=== PATIENT | female | born 1990 | race Caucasian/White ===

== ENCOUNTER 2021-02-14 15:50 | Emergency (ER) | payer OTHER, SELFPAY ==
--- NOTE | ~2021-02-14 | XR_ITS ---
EXAMINATION: XR chest 2V DATE: 02/14/2021 17:20 INDICATION: Shortness of breath TECHNIQUE: PA and lateral views of the chest are obtained. COMPARISON: 12/05/2017 FINDINGS: The lungs are free of acute opacities. There is no pleural effusion or pneumothorax. The ca rdiomediastinal silhouette is normal. The visualized bones and soft tissues are unremarkable. IMPRESSION: 1. No acute cardiopulmonary abnormality. Reviewed, dictated and finalized at location A.
[2021-02-14 16:29] VITALS: BP 135/85; PULSE 113; RESP 14; TEMP 37.1; O2SAT 100
--- NOTE | 2021-02-14 16:33 | ECG_ITS ---
Measurements Intervals [place] Rate: 102 P: 61 MT: 156 QRS: 66 QRSD: 85 T: 41 QT: 330 QTc: 431 Interpretive Statements SINUS TACHYCARDIA MINIMAL Q WAVES- ANTEROLAT/INF LEADS BORDERLINE ECG Electronically Signed On 02-14-2021 20:03:05 CDT by Jaime Cowan D.O.
[2021-02-14 18:28] LABS: Basophils Percent Auto 0.6 % (0.2-1.2); Eosinophils Absolute Auto 0.1 K/mm3 (0-0.3); Eosinophils Percent Auto 1.7 % (0-4.4); Hematocrit 41.2 % (37.0-47.0); Hemoglobin 13.5 g/dL (12.0-15.0); Lymphocytes Absolute Auto 1.51 K/mm3 (0.9-3.2); Lymphocytes Percent Auto 41.6 % (18.3-44.2); Mean Corpuscular HGB Conc 32.8 g/dl (32-36); Mean Corpuscular Hemoglobin 30.7 pg (26-34); Mean Corpuscular Volume 93.6 fl (80-100); Mean Platelet Volume 9.8 fl (7.4-10.4); Monocytes Absolute Auto 0.3 K/mm3 (0.1-0.6); Monocytes Percent Auto 8.5 % (2.6-8.5); Neutrophils Absolute Auto 1.7 K/mm3 (1.3-6.7); Neutrophils Percent Auto 47.6 % (45.5-73.1); Platelet Count Result 248 k/mm3 (150-375); Red Cell Distribution Width 12.2 % (11.5-14.5); White Blood Count 3.6 K/mm3 (4.5-10.0)
[2021-02-14 18:37] LABS: Anion Gap 12 mmol/L (8-16); Blood Urea Nitrogen 9 mg/dL (7-17); Calcium 9.4 mg/dL (8.4-10.2); Carbon Dioxide 25 mmol/L (22-30); Chloride 105 mmol/L (98-107); Estimated CRCL calculation 77 ml/min; Estimated Glomerular Filt Rate > 60; Glucose 94 mg/dL (65-110); Potassium 4.2 mmol/L (3.4-5.0); Sodium 142 mmol/L (137-145)
[2021-02-14 19:20] VITALS: BP 135/88; PULSE 90; RESP 17; O2SAT 100
[2021-02-14 19:21] VITALS: BP 135/88; PULSE 90; RESP 17; O2SAT 100
--- NOTE | 2021-02-14 20:46 | ED.GENADULT ---
HPI - General Adult General Chief complaint: Upper Respiratory Infection Stated complaint: sob after covid vaccine Time Seen by Provider: 02/14/21 19:28 Source: patient Mode of arrival: ambulatory Limitations: no limitations History of Present Illness HPI narrative: Patient presents with chief complaint of tightness or her esophagus and she has made that began yesterday. Patient states that she received her [employer] Covid vaccination on Thursday. She states that it feels as if she is having an allergic tightness. She reports taking daytime antihistamine this morning without relief of her symptoms. Patient states she has been able to eat, drink and swallow without difficulty. However the sensation is still present. Patient reports that she called her primary care and they instructed her to come to the ER to rule out a blood clot due to the [employer] vaccine. Patient denies any other symptoms or concerns. Related Data Allergies Allergy/AdvReac Type Severity Reaction Status Date / Time diphenhydramine AdvReac Intermediate Nervousness Verified 02/14/21 19:22 loratadine AdvReac Unknown NERVOUSNESS Verified 02/14/21 19:22 Grass Allergy Intermediate Dyspnea / Uncoded 02/14/21 19:22 SOB Review of Systems Review of Systems: CONSTITUTIONAL: Denies fever, chills, or sweats. EYES: Denies visual changes, redness, or discharge. ENT: Denies rhinorrhea, congestion, sore throat, or otalgia. CARDIOVASCULAR: Denies chest pain, palpitations, or edema. RESPIRATORY: Denies cough GASTROINTESTINAL: Denies abdominal pain, nausea, vomiting, or diarrhea. GENITOURINARY: Denies dysuria or hematuria. SKIN: Denies rash or itching. MUSCULOSKELETAL: Denies back pain, joint pain, or myalgia. NEUROLOGIC: Denies headache, numbness, dizziness, or weakness. PSYCHIATRIC: Denies anxiety or depression. Exam Narrative: GENERAL: Well-appearing, well-nourished, and in no acute distress. HEAD: Normocephalic, atraumatic. EYES: PERRLA and EOMI. ENT: Nares clear, no rhinorrhea or epistaxis. Mucous membranes moist. Oropharynx without tonsillar hypertrophy exudate or other lesions. Bilateral TMs pearly garcia nonbulging NECK: Supple. No adenopathy or masses. Range of motion intact. CHEST: Clear to auscultation. No respiratory distress. No wheezes rales or rhonchi. Patient speaking clear appropriate sentences without difficulty. Patient handling her own secretions. HEART: Regular rate and rhythm. No murmur heard. Normal peripheral pulses. EXTREMITIES: Normal range of motion. No edema. SKIN: Warm, dry, no rash. NEURO: No focal deficits. Alert and oriented x3. PSYCH: Normal mood and affect. Course Vital Signs Vital signs: Vital Signs Temperature 98.7 F 02/14/21 16:29 Pulse Rate 113 H 02/14/21 16:29 Respiratory Rate 14 02/14/21 16:29 Blood Pressure 135/85 02/14/21 16:29 Pulse Oximetry 100 02/14/21 16:29 Temperature 98.7 F 02/14/21 16:29 Pulse Rate 90 02/14/21 19:21 Respiratory Rate 17 02/14/21 19:21 Blood Pressure 135/88 02/14/21 19:21 Pulse Oximetry 100 02/14/21 19:21 Medical Decision Making MDM Narrative Medical decision making narrative: Patient's D-dimer is negative. She is not displaying any dyspnea, tachypnea or tachycardia. Patient appears hemodynamically stable. Steroids not given as we will decrease the attenuation of the vaccine. Patient is airway is patent and she is handling her own saliva appropriately has been able to eat and drink appropriately. Patient does not have any hives or erythema. Patient states she is not wanting any antihistamines or Ativan. Patient states that she is comfortable going home. Vital Signs Vital Signs: Vital Signs Temperature 98.7 F 02/14/21 16:29 Pulse Rate 113 H 02/14/21 16:29 Respiratory Rate 14 02/14/21 16:29 Blood Pressure 135/85 02/14/21 16:29 Pulse Oximetry 100 02/14/21 16:29 Temperature 98.7 F 02/14/21 16:29 Pulse Rate 90 02/14
--- NOTE | 2021-02-14 20:57 | PC.NURSE ---
Pt refused ativan due to past reactions to anti-anxiety medications. CRUZ Lyon aware
[2021-02-14 21:11] LABS: D Dimer 0.28 ug/mL (<0.48)
[2021-02-14 22:18] VITALS: BP 126/91; PULSE 92; RESP 14; O2SAT 100
== END 2021-02-14 22:19 | disposition home or self-care (01) ==
PROVIDERS: Emergency Medicine; Physician Assistant; Emergency Provider Emergency Medicine; PCP Student in an Organized Health Care Education/Training Program
DX: R09.89 Other specified symptoms and signs involving the circulatory and respiratory systems (principal); T50.B95A Adverse effect of other viral vaccines, initial encounter
CPT/HCPCS: 36415; 71046; 80048; 85025; 85380; 93005; 99283

== ENCOUNTER → 2021-03-26 08:16 | Outpatient (CLI) | payer OTHER, SELFPAY ==
--- NOTE | ~2021-03-26 | XR_ITS ---
EXAMINATION: XR hand LT 2V DATE: 03/26/2021 09:11 INDICATION: Polyarthralgia. TECHNIQUE: 2 views of left hand were obtained. COMPARISON: None. FINDINGS: Clinodactyly is noted. No fracture. There is a benign bone island in capitate. Joint spaces are normal. IMPRESSION: 1. No arthritis. Reviewed, dictated and finalized at location A. IMPRESSION: 1. No arthritis.
--- NOTE | ~2021-03-26 | XR_ITS ---
EXAMINATION: XR hand RT 2V DATE: 03/26/2021 09:10 INDICATION: Polyarthralgia. TECHNIQUE: 2 views of right hand were obtained. COMPARISON: None. FINDINGS: Clinodactyly is noted. No fracture. Joint spaces are normal. IMPRESSION: 1. No arthritis. Reviewed, dictated and finalized at location A. IMPRESSION: 1. No arthritis.
--- NOTE | ~2021-03-26 | XR_ITS ---
EXAMINATION: XR lumbar spine 2-3V, XR sacroiliac joints min 3V EXAM DATE: 03/26/2021 09:10 INDICATION: Polyarthralgia. TECHNIQUE: Lumber spine frontal, lateral, lateral L5-S1 projections for interpretation. Sacroiliac j oints frontal and bilateral oblique projections. There are no prior studies for comparison. FINDINGS: There is mild thoracolumbar dextrocurvature, could be scoliosis or positional. Vertebral body and disc heights are well-maintained. The facet joints are unremarkable. No endplate e rosive change. Sacrum, sacroiliac joints, sacral arcuate lines are intact. Sacroiliac joints are symm etric. IMPRESSION: Minimal thoracolumbar dextrocurvature. Unremarkable sacrum. Reviewed, dictated and finalized at location B. IMPRESSION: Minimal thoracolumbar dextrocurvature. Unremarkable sacrum.
== END ==
PROVIDERS: Visit Provider Physician Assistant
DX: M25.50 Pain in unspecified joint (principal)
CPT/HCPCS: 72100; 72202; 73120

== ENCOUNTER 2021-09-05 10:24 | Emergency (ER) | payer OTHER, SELFPAY ==
[2021-09-05 10:34] VITALS: BP 139/100; PULSE 101; RESP 18; O2SAT 100
--- NOTE | 2021-09-05 10:38 | PC.NURSE ---
EDP at bedside to assess pt.
--- NOTE | 2021-09-05 10:47 | ED.GENADULT ---
HPI - General Adult General Chief complaint: Headache <Kerry Irving PA-C - Last Filed: 09/05/21 14:06> Stated complaint: , vomiting <Kerry Irving PA-C - Last Filed: 09/05/21 14:06> Time Seen by Provider: 09/05/21 10:32 <Kerry Irving PA-C - Last Filed: 09/05/21 14:06> History of Present Illness HPI narrative: Patient is a G5, P1 female with a history of hyperemesis gravidarum who is currently 5 weeks who presents for nausea, vomiting, and headache today. Patient states she has had approximately 5 episodes of vomiting nonbloody, nonbilious emesis per hour over the last 6 hours, she has been unable to tolerate any p.o. including her migraine medications. Her headache is diffuse and typical of her tension headaches, for which she takes Fioricet prescribed by her OUTBOARD MOTOR MECHANIC. States during her previous , she was on an antiemetic and prednisone to control her hyperemesis. She denies any abdominal pain, vaginal bleeding, sudden gush of fluids, fevers, new foods, sick contacts, leg swelling. She is a new patient of Dr. Wallace and has follow-up with him tomorrow. Is scheduled to start botox injections with Dr. Pandya, neurologist at [facility], for her migraine headaches. <Kerry Irving PA-C - Last Filed: 09/05/21 14:06> Related Data Allergies/adverse reactions: Allergies Allergy/AdvReac Type Severity Reaction Status Date / Time diphenhydramine AdvReac Intermediate Nervousness Verified 09/05/21 12:33 loratadine AdvReac Unknown NERVOUSNESS Verified 09/05/21 12:33 Grass Allergy Intermediate Dyspnea / Uncoded 02/14/21 19:22 SOB <Kerry Irving PA-C - Last Filed: 09/05/21 14:06> Review of Systems Review of Systems: Gen.: Denies fevers or chills Eyes: Denies eye pain or visual change ENT: Denies congestion Respiratory: Denies shortness of breath or cough CV: Denies chest pain or palpitations GI: Reports nausea, vomiting. denies abdominal pain or diarrhea : Denies vaginal bleeding. Denies burning, urgency, frequency or hematuria Musculoskeletal: Denies back pain or muscle pain Neuro: Reports headache. Denies numbness, tingling, weakness or focal weakness Skin: Denies rash Except as documented, all other systems reviewed and negative <Kerry Irving PA-C - Last Filed: 09/05/21 14:06> Exam Narrative: APPEARANCE: Well appearing, no pain in distress, well-nourished. Head normocephalic and atraumatic. EYES: PERRLA/EOMI, conjunctivae clear NOSE: No nasal drainage EARS: External ear normal in appearance THROAT: Oropharynx is clear. Mucous membranes are moist. NECK: Supple. No adenopathy, no masses. RESPIRATORY: Airway patent, respirations nonlabored. Clear to auscultation bilaterally, no rales, rhonchi, wheezing. CARDIOVASCULAR: Regular rate and rhythm without murmurs, rubs, or gallops. ABDOMINAL: Normoactive bowel sounds. Soft, nontender, nondistended. No rebound tenderness or guarding. MUSCULOSKELETAL: Extremities are warm and well-perfused. Moves all extremities well. No edema. NEURO: Normal speech. No focal neurologic deficits. SKIN:: Skin is warm and dry. No rashes. PSYCHIATRIC: Normal affect/mood. <Kerry Irving PA-C - Last Filed: 09/05/21 14:06> Course BEADING INSTALLER/PA Physician Supervision I did not see this patient but the care plan was discussed with me. I agree with the documentation as above <Tod Marcus MD - Last Filed: 09/05/21 17:28> Vital Signs Vital signs: Vital Signs Pulse Rate 101 H 09/05/21 10:34 Respiratory Rate 18 09/05/21 10:34 Blood Pressure 139/100 H 09/05/21 10:34 Pulse Oximetry 100 09/05/21 10:34 Pulse Rate 108 H 09/05/21 13:56 Respiratory Rate 18 09/05/21 13:56 Blood Pressure 122/73 09/05/21 13:56 Pulse Oximetry 100 09/05/21 13:56 <Kerry Irving PA-C - Last Filed: 09/05/21 14:06> Vital Signs Pulse Rate 101 H 09/05/21 10:34 Respiratory Rat
[2021-09-05 11:06] LABS: Basophils Percent Auto 0.3 % (0.2-1.2); Eosinophils Percent Auto 0.1 % (0-4.4); Hematocrit 42.6 % (37.0-47.0); Hemoglobin 13.9 g/dL (12.0-15.0); Immature Granulocyte Absolute 0.02 K/mm3 (0.00-0.031); Immature Granulocyte Percent A 0.2 % (0-0.5); Lymphocytes Absolute Auto 0.99 K/mm3 (0.9-3.2); Lymphocytes Percent Auto 11.5 % (18.3-44.2); Mean Corpuscular HGB Conc 32.6 g/dl (32-36); Mean Corpuscular Hemoglobin 30.4 pg (26-34); Mean Corpuscular Volume 93.2 fl (80-100); Mean Platelet Volume 9.2 fl (7.4-10.4); Monocytes Absolute Auto 0.4 K/mm3 (0.1-0.6); Monocytes Percent Auto 4.6 % (2.6-8.5); Neutrophils Absolute Auto 7.2 K/mm3 (1.3-6.7); Neutrophils Percent Auto 83.3 % (45.5-73.1); Platelet Count Result 304 k/mm3 (150-375); Red Blood Count 4.57 M/mm3 (4.2-5.4); Red Cell Distribution Width 12.7 % (11.5-14.5); White Blood Count 8.6 K/mm3 (4.5-10.0)
[2021-09-05 11:15] LABS: Alanine Aminotransferase 20 U/L (4-35); Albumin Level 4.7 g/dL (3.5-5.1); Alkaline Phosphatase 57 U/L (38-126); Anion Gap 10 mmol/L (8-16); Aspartate Amino Transferase 32 U/L (14-36); Bilirubin,Total 0.9 mg/dL (0.2-1.3); Blood Urea Nitrogen 11 mg/dL (7-17); Calcium 8.9 mg/dL (8.4-10.2); Carbon Dioxide 20 mmol/L (22-30); Chloride 107 mmol/L (98-107); Estimated CRCL calculation 89 ml/min; Estimated Glomerular Filt Rate > 60; Glucose 98 mg/dL (65-110); Potassium 3.7 mmol/L (3.4-5.0); Sodium 137 mmol/L (137-145)
[2021-09-05] MEDS: SODIUM CHLORIDE 0.9% IV 1,000 ML 999 ML IV CONT (11:23)
[2021-09-05] MEDS: ONDANSETRON INJ 4 MG/2 ML VIAL IV PUSH (11:35)
[2021-09-05] MEDS: ACETAMINOPHEN 500 MG TABLET 1000 MG PO (12:27)
[2021-09-05] MEDS: PROCHLORPERAZINE EDISYLATE 10 MG/2 ML VIAL IV PUSH (13:28)
[2021-09-05 13:45] LABS: Add Urine Microscopic? YES; Appearance Urine Clear (Clear); Bilirubin Urine Negative (Negative); Blood Urine 1+ (Negative); Color Urine Yellow (Yellow); Glucose Urine UA Negative (Negative); Ketones Urine 2+ mg/dL (Negative); Leukocyte Esterase Ur 1+ LEU/UL (Negative); Mucus Urine Rare /lpf; Nitrate Urine Negative (Negative); Protein Urine Negative (Negative); RBC Urine 0-2 /hpf (0-2); Squamous Epithelial Cell Urine Occasional /hpf (Few); Urobilinogen Urine Negative mg/dL (<2.0); WBC Urine 0-3 /hpf
[2021-09-05 13:56] VITALS: BP 122/73; PULSE 108; RESP 18; O2SAT 100
== END 2021-09-05 14:06 | disposition home or self-care (01) ==
PROVIDERS: Physician Assistant; Emergency Provider Emergency Medicine; PCP Obstetrics & Gynecology
DX: O21.9 Vomiting of pregnancy, unspecified (principal); Z3A.01 Less than 8 weeks gestation of pregnancy
CPT/HCPCS: 36415; 80053; 81001; 81025; 85025; 96361; 96374; 96375; 99284; A9270; J0780; J2405; J7030

== ENCOUNTER 2021-09-11 10:55 | Emergency (ER) | payer OTHER, SELFPAY ==
[2021-09-11 10:58] VITALS: BP 129/78; PULSE 102; RESP 17; TEMP 36.6; O2SAT 99
--- NOTE | 2021-09-11 10:58 | ED.NAVMDI ---
HPI - Nausea/Vomiting/Diarrhea General Chief complaint: Nausea/Vomiting/Diarrhea Stated complaint: 6 weeks, N/V Time Seen by Provider: 09/11/21 10:57 History of Present Illness HPI Narrative: 30-year-old female presents the emergency room for evaluation of antepartum nausea and vomiting. Patient states that she has hyperemesis gravidarum, and was sent here by her CARTON MAKING MACHINIST's office for fluid replacement patient denies abdominal pain, fever, vaginal bleeding. Related Data Allergies Allergy/AdvReac Type Severity Reaction Status Date / Time diphenhydramine AdvReac Intermediate Nervousness Verified 09/11/21 11:00 loratadine AdvReac Unknown NERVOUSNESS Verified 09/11/21 11:00 Grass Allergy Intermediate Dyspnea / Uncoded 02/14/21 19:22 SOB Review of Systems Review of Systems: CONSTITUTIONAL: Denies fever, chills, or sweats. EYES: Denies visual changes, redness, or discharge. ENT: Denies rhinorrhea, congestion, sore throat, or otalgia. CARDIOVASCULAR: Denies chest pain, palpitations, or edema. RESPIRATORY: Denies cough or dyspnea. GASTROINTESTINAL: Reports nausea and vomiting GENITOURINARY: Denies dysuria or hematuria. SKIN: Denies rash or itching. MUSCULOSKELETAL: Denies back pain, joint pain, or myalgia. NEUROLOGIC: Denies headache, numbness, dizziness, or weakness. PSYCHIATRIC: Denies anxiety or depression. Exam Narrative: GENERAL: Well-appearing, well-nourished, and in no acute distress. HEAD: Normocephalic, atraumatic. EYES: PERRLA and EOMI. CHEST: Clear to auscultation. No respiratory distress. No wheezes rales or rhonchi HEART: Regular rate and rhythm. No murmur heard. Normal peripheral pulses. ABDOMEN: Soft, nontender, nondistended, normal active bowel sounds. EXTREMITIES: Normal range of motion. No edema. SKIN: Warm, dry, no rash. NEURO: No focal deficits. Alert and oriented x3. PSYCH: Normal mood and affect. Course Vital Signs Vital signs: Vital Signs Temperature 36.6 C 09/11/21 10:58 Pulse Rate 102 H 09/11/21 10:58 Respiratory Rate 17 09/11/21 10:58 Blood Pressure 129/78 09/11/21 10:58 Pulse Oximetry 99 09/11/21 10:58 Temperature 36.6 C 09/11/21 10:58 Pulse Rate 102 H 09/11/21 10:58 Respiratory Rate 17 09/11/21 10:58 Blood Pressure 129/78 09/11/21 10:58 Pulse Oximetry 99 09/11/21 10:58 MDM - Nausea/Vomiting/Diarrhea MDM Narrative Medical decision making narrative: 30-year-old female presents emergency room with complaints of nausea vomiting over the last couple of days. Patient is 6 weeks and has been experiencing hyperemesis gravidarum. Patient states that she has multiple antiemetics at home which have not been helping her. CBC and CMP were unremarkable. Patient responded well to a liter of fluids. Differential Diagnosis Differential diagnosis: Likely dehydration Lab Data Attestation: I reviewed the patient's lab results. Result diagrams: 09/11/21 11:25 09/11/21 11:26 Labs: Lab Results 09/11/21 09/11/21 Range/Units 11:25 11:26 WBC 8.2 (4.5-10.0) K/mm3 RBC 4.38 (4.2-5.4) M/mm3 Hgb 13.3 (12.0-15.0) g/dL Hct 40.5 (37.0-47.0) % MCV 92.5 (80-100) fl MCH 30.4 (26-34) pg MCHC 32.8 (32-36) g/dl RDW 12.4 (11.5-14.5) % Plt Count 273 (150-375) k/mm3 MPV 9.3 (7.4-10.4) fl Immature Gran % (Auto) 0.2 (0-0.5) % Neut % (Auto) 78.8 H (45.5-73.1) % Lymph % (Auto) 14.3 L (18.3-44.2) % [place] % (Auto) 6.0 (2.6-8.5) % Eos % (Auto) 0.1 (0-4.4) % Baso % (Auto) 0.6 (0.2-1.2) % Lymph # (Auto) 1.18 (0.9-3.2) K/mm3 [place] # (Auto) 0.5 (0.1-0.6) K/mm3 Eos # (Auto) 0.0 (0-0.3) K/mm3 Baso # (Auto) 0.1 (0.0-0.1) K/mm3 Abs Immat Gran (auto) 0.02 (0.00-0.031) K/mm3 Absolute Neuts (auto) 6.5 (1.3-6.7) K/mm3 Absolute Nucleated RBC 0.0 (0.0-0.012) K/mm3 Nucleated RBC % 0.0 (0.0-0.2) % Sodium 133 L (137-145) mmol/L Potassium 3.6 (3.4-5.0) mmol/L
[2021-09-11] MEDS: SODIUM CHLORIDE 0.9% IV 1,000 ML 999 ML IV CONT (11:26)
[2021-09-11 11:39] LABS: Basophils Absolute Auto 0.1 K/mm3 (0.0-0.1); Basophils Percent Auto 0.6 % (0.2-1.2); Eosinophils Percent Auto 0.1 % (0-4.4); Hematocrit 40.5 % (37.0-47.0); Hemoglobin 13.3 g/dL (12.0-15.0); Immature Granulocyte Absolute 0.02 K/mm3 (0.00-0.031); Immature Granulocyte Percent A 0.2 % (0-0.5); Lymphocytes Absolute Auto 1.18 K/mm3 (0.9-3.2); Lymphocytes Percent Auto 14.3 % (18.3-44.2); Mean Corpuscular HGB Conc 32.8 g/dl (32-36); Mean Corpuscular Hemoglobin 30.4 pg (26-34); Mean Corpuscular Volume 92.5 fl (80-100); Mean Platelet Volume 9.3 fl (7.4-10.4); Monocytes Absolute Auto 0.5 K/mm3 (0.1-0.6); Neutrophils Absolute Auto 6.5 K/mm3 (1.3-6.7); Neutrophils Percent Auto 78.8 % (45.5-73.1); Platelet Count Result 273 k/mm3 (150-375); Red Blood Count 4.38 M/mm3 (4.2-5.4); Red Cell Distribution Width 12.4 % (11.5-14.5); White Blood Count 8.2 K/mm3 (4.5-10.0)
[2021-09-11 11:49] LABS: Alanine Aminotransferase 19 U/L (4-35); Albumin Level 4.7 g/dL (3.5-5.1); Alkaline Phosphatase 58 U/L (38-126); Anion Gap 10 mmol/L (8-16); Aspartate Amino Transferase 24 U/L (14-36); Bilirubin,Total 1.1 mg/dL (0.2-1.3); Blood Urea Nitrogen 9 mg/dL (7-17); Carbon Dioxide 19 mmol/L (22-30); Chloride 104 mmol/L (98-107); Estimated CRCL calculation 97 ml/min; Estimated Glomerular Filt Rate > 60; Glucose 99 mg/dL (65-110); Potassium 3.6 mmol/L (3.4-5.0); Sodium 133 mmol/L (137-145)
== END 2021-09-11 13:04 | disposition home or self-care (01) ==
PROVIDERS: Emergency Provider Nurse Practitioner Family; PCP Obstetrics & Gynecology
DX: O21.0 Mild hyperemesis gravidarum (principal); Z3A.01 Less than 8 weeks gestation of pregnancy
CPT/HCPCS: 36415; 80053; 85025; 96360; 96361; 99283; J7030

== ENCOUNTER 2021-09-13 13:43 | Observation (INO) | payer OTHER, SELFPAY ==
[2021-09-13] VITALS (7 sets, daily range): BP systolic 105–129; BP diastolic 57–84; PULSE 61–104; BMI 26.4
[2021-09-13 14:33] LABS: Hematocrit 37.6 % (37.0-47.0); Hemoglobin 12.7 g/dL (12.0-15.0); Mean Corpuscular HGB Conc 33.8 g/dl (32-36); Mean Corpuscular Hemoglobin 31.1 pg (26-34); Mean Corpuscular Volume 92.2 fl (80-100); Mean Platelet Volume 9.3 fl (7.4-10.4); Platelet Count Result 228 k/mm3 (150-375); Red Blood Count 4.08 M/mm3 (4.2-5.4); Red Cell Distribution Width 12.4 % (11.5-14.5); White Blood Count 5.3 K/mm3 (4.5-10.0)
[2021-09-13 14:44] LABS: Alanine Aminotransferase 23 U/L (4-35); Albumin Level 4.4 g/dL (3.5-5.1); Alkaline Phosphatase 50 U/L (38-126); Anion Gap 9 mmol/L (8-16); Aspartate Amino Transferase 36 U/L (14-36); Bilirubin,Total 0.6 mg/dL (0.2-1.3); Blood Urea Nitrogen 10 mg/dL (7-17); Calcium 8.6 mg/dL (8.4-10.2); Carbon Dioxide 22 mmol/L (22-30); Chloride 103 mmol/L (98-107); Estimated Glomerular Filt Rate > 60; Glucose 121 mg/dL (65-110); Potassium 3.4 mmol/L (3.4-5.0); Sodium 134 mmol/L (137-145)
[2021-09-13] MEDS: DEXTROSE 5%/LACTATED RINGERS 1,000 ML 999 ML IV CONT (14:46)
--- NOTE | 2021-09-13 15:06 | PC.NURSE ---
1505--Sony Yu on unit, report given re: pt. stating she had passed out earlier today X15 sec., lab results reviewed. Orders to continue with POC and make sure pt. gets D5LR X1 liter bolus and LR X1 liter bolus.
--- NOTE | 2021-09-13 15:09 | OBADM ---
This patient, Roxi Shepard, admitted to the OB room OB Post 112 for observation. Patient/family oriented to hospital policies and general routines including ID bracelet, bed and alarms, visiting hours, pain management, procedures, bathroom and other care routines, personal items, smoking policy, room service/diet, and visiting hours. Patient/Family are encouraged to report perceived risks to care and to ask questions if they do not understand what they are told or what they should do. Pt. states she has hyperemesis gravidarum and that she had passed out X15 sec. at approx, 1315 today. She states it was witnessed per her who caught her and eased her onto the couch. Pt. states she has not been able to keep anything down and has only had 1 sip of lemon slush today.
[2021-09-13] MEDS: FAMOTIDINE 20 MG/2 ML VIAL IV PUSH (15:23)
[2021-09-13] MEDS: LACTATED RINGERS 1,000 ML 999 ML IV CONT (15:44)
[2021-09-13] MEDS: DEXTROSE 5%/LACTATED RINGERS 1,000 ML 200 ML IV CONT (16:54)
--- NOTE | 2021-09-13 17:12 | PC.NURSE ---
1634--Pt. vomited 100cc pink liquid emesis.
[2021-09-13 17:15] LABS: Add Urine Microscopic? YES; Appearance Urine Clear (Clear); Bilirubin Urine Negative (Negative); Blood Urine Negative (Negative); Color Urine Yellow (Yellow); Glucose Urine UA 3+ mg/dL (Negative); Ketones Urine Negative (Negative); Leukocyte Esterase Ur Negative LEU/UL (NEGATIVE); Nitrate Urine Negative (Negative); Protein Urine Negative (Negative); Urobilinogen Urine 0.2 mg/dL (<2.0)
[2021-09-13 17:18] LABS: Mucus Urine Rare /lpf; RBC Urine 0-2 /hpf (0-2); Squamous Epithelial Cell Urine Rare /hpf (Few); WBC Urine 0-3 /hpf (0-3)
--- NOTE | 2021-09-13 18:14 | PC.NURSE ---
1813--Report urine results to Sony Yu CNM. She states that pt. may stay and continue with IVF's if she feels the need, but may be DC'd home whenever she feels better. Report to Svetlana Solano RN to assume care of pt. at this time.
--- NOTE | 2021-10-20 18:34 | P.PNOB_ITS ---
OB - Triage/Final Diagnosis Visit Information Date of evaluation: 09/13/21 Reason for evaluation: other (hyperemesis) Comments/Additional reasons for admission: I have assessed the risk for this patient, Roxi Shepard, and determined that she would benefit from observation care. Evaluation Laboratory results: Laboratory Tests 09/13/21 09/13/21 09/13/21 14:27 14:27 17:02 WBC 5.3 RBC 4.08 L Hgb 12.7 Hct 37.6 MCV 92.2 MCH 31.1 MCHC 33.8 RDW 12.4 Plt Count 228 MPV 9.3 Sodium 134 L Potassium 3.4 Chloride 103 Carbon Dioxide 22 Anion Gap 9 BUN 10 Creatinine 0.60 L Estim Creat Clear Calc Not Reportable Estimated GFR > 60 Glucose 121 H Calcium 8.6 Total Bilirubin 0.6 AST 36 ALT 23 Alkaline Phosphatase 50 Total Protein 8.0 Albumin 4.4 Urine Color Yellow Urine Appearance Clear Urine pH 7.0 Ur Specific [place] 1.010 Urine Protein Negative Urine Glucose (UA) 3+ H Urine Ketones Negative Ur Blood (Man) Negative Urine Nitrate Negative Urine Bilirubin Negative Urine Urobilinogen 0.2 Ur Leukocyte Esterase Negative Urine RBC 0-2 Urine WBC 0-3 Ur Squamous Epith Cells Rare Urine Mucus Rare
== END 2021-09-13 21:12 | disposition home or self-care (01) ==
PROVIDERS: Advanced Practice Midwife; Admitting Provider Obstetrics & Gynecology; Visit Provider Obstetrics & Gynecology
DX: O21.0 Mild hyperemesis gravidarum (principal); Z3A.00 Weeks of gestation of pregnancy not specified
CPT/HCPCS: 36415; 80053; 81001; 85027; 96374; G0378; G0379; J7120; J7121

== ENCOUNTER 2021-09-16 09:22 | Observation (INO) | payer OTHER, SELFPAY ==
--- NOTE | 2021-09-16 09:35 | PC.NURSE ---
Dr Wallace notified of hyperemesis and patient wanting IV fluid. Order received.
[2021-09-16] MEDS: DEXTROSE 5%/LACTATED RINGERS 1,000 ML 999 ML IV CONT (09:56)
[2021-09-16 10:00] VITALS: BP 110/70; PULSE 88; BMI 26.6
--- NOTE | 2021-09-16 10:00 | OBADM ---
This patient, Roxi Shepard, admitted to the OB room OB Post 116 for observation. Patient/family oriented to hospital policies and general routines including ID bracelet, bed and alarms, visiting hours, pain management, procedures, bathroom and other care routines, personal items, smoking policy, room service/diet, and visiting hours. Patient/Family are encouraged to report perceived risks to care and to ask questions if they do not understand what they are told or what they should do.
[2021-09-16] MEDS: FAMOTIDINE 20 MG/2 ML VIAL IV PUSH (10:56)
[2021-09-16] MEDS: DEXTROSE 5%/LACTATED RINGERS 1,000 ML 200 ML IV CONT (10:56)
--- NOTE | 2021-09-16 15:12 | PC.NURSE ---
Patient states that she is feeling better and more hydrated. Wishing to go home. Patient spoke to the MD office and they are trying to arrange home health for a PICC line.
--- NOTE | 2021-10-07 15:37 | PM.OBTRLD ---
OB - Triage/Final Diagnosis Visit Information Comments/Additional reasons for admission: I have assessed the risk for this patient, Roxi Shepard, and determined that she would benefit from observation care. Final Diagnosis (1) Nausea/vomiting in : Code(s): O21.9 - Vomiting of , unspecified Status: Acute
== END 2021-09-16 15:15 | disposition home or self-care (01) ==
PROVIDERS: Admitting Provider Obstetrics & Gynecology; Visit Provider Obstetrics & Gynecology
DX: O21.0 Mild hyperemesis gravidarum (principal); Z3A.01 Less than 8 weeks gestation of pregnancy
CPT/HCPCS: 96361; 96374; G0378; G0379; J7121

== ENCOUNTER 2021-09-18 08:25 | Outpatient (RCR) | payer OTHER, SELFPAY ==
[2021-09-18 08:35] VITALS: BP 129/76; PULSE 88; RESP 14; TEMP 37.4; O2SAT 100; BMI 26.7
--- NOTE | 2021-09-18 10:14 | PC.NURSE ---
0830 Patient here for dual picc line insertion. Patient A & O x 3. Patient ambulatory with steady gait. All question answered regarding picc line insertion and procedures. Patient agreeable to picc line insert and consent signed by patient.
== END 2021-12-17 23:59 | disposition home or self-care (01) ==
LOC: ANHVASCINF 08:25
PROVIDERS: PCP Obstetrics & Gynecology; Visit Provider Obstetrics & Gynecology
DX: Z45.2 Encounter for adjustment and management of vascular access device (principal); O21.0 Mild hyperemesis gravidarum; Z3A.00 Weeks of gestation of pregnancy not specified
CPT/HCPCS: 36569; C1751

== ENCOUNTER 2021-09-27 12:03 | Outpatient (CLI) | payer OTHER, SELFPAY ==
--- NOTE | 2021-09-27 | ECG_ITS ---
Measurements Intervals [place] Rate: 60 P: 49 AR: 162 QRS: 70 QRSD: 90 T: 52 QT: 395 QTc: 397 Interpretive Statements SINUS RHYTHM NORMAL ECG COMPARED TO ECG 02/14/2021 16:44:29 HEART RATE DECREASED, NO OTHER DIFFERENCE Electronically Signed On 09-27-2021 12:54:14 CDT by Julio C Edwards M.D.
== END 2021-09-27 12:04 | disposition home or self-care (01) ==
LOC: ANHCARD 12:06
PROVIDERS: PCP Student in an Organized Health Care Education/Training Program; Visit Provider Obstetrics & Gynecology
DX: O21.1 Hyperemesis gravidarum with metabolic disturbance (principal); Z3A.00 Weeks of gestation of pregnancy not specified
CPT/HCPCS: 93005

== ENCOUNTER 2021-10-26 11:30 | Emergency (ER) | payer SELFPAY ==
[2021-10-26 11:31] VITALS: BP 138/95; PULSE 122; RESP 18; TEMP 36.4; O2SAT 100
--- NOTE | 2021-10-26 12:03 | ED.GENADULT ---
HPI - General Adult General Chief complaint: Vaginal Bleeding Stated complaint: 13 weeks with spotting Time Seen by Provider: 10/26/21 11:52 History of Present Illness HPI narrative: 29-year-old female presenting to the emergency department for evaluation of vaginal bleeding. Patient is approximately 13 weeks and does have follow-up with Dr. Wallace. Patient has had prior issues with hyperemesis gravidarum and does have a PICC line. Patient is currently getting IV fluids. Patient states last night she began to notice some pink and brown vaginal spotting. Patient states this is primarily after she wipes. Patient does have a history of cervical incompetence and is scheduled to have a cerclage placed. Patient does report some lower abdominal cramping, the patient denies any significant abdominal pain. Patient blood type is O+. Patient has had multiple ultrasounds with this confirming an IUP. Patient states her last ultrasound was which showed she had a closed cervix of 2 cm. Related Data Home Medications Medication Instructions Recorded Confirmed granisetron HCl 1 mg tablet 1 mg PO BID 09/13/21 09/13/21 pantoprazole 20 mg tablet,delayed 20 mg PO BID 09/13/21 09/13/21 release Allergies Allergy/AdvReac Type Severity Reaction Status Date / Time diphenhydramine AdvReac Intermediate Nervousness Verified 09/11/21 11:00 loratadine AdvReac Unknown NERVOUSNESS Verified 09/11/21 11:00 Grass Allergy Intermediate Dyspnea / Uncoded 02/14/21 19:22 SOB Review of Systems Review of Systems: CONSTITUTIONAL: Denies fever, chills, or sweats. EYES: Denies visual changes, redness, or discharge. ENT: Denies rhinorrhea, congestion, sore throat, or otalgia. CARDIOVASCULAR: Denies chest pain, palpitations, or edema. RESPIRATORY: Denies cough or dyspnea. GASTROINTESTINAL: Mild abdominal cramping and vaginal spotting GENITOURINARY: Denies dysuria or hematuria. SKIN: Denies rash or itching. MUSCULOSKELETAL: Denies back pain, joint pain, or myalgia. NEUROLOGIC: Denies headache, numbness, or weakness. Exam Narrative: APPEARANCE: Well appearing, no pain, no distress, well-nourished. HEAD: normocephalic, atraumatic. EYES: PERRLA/EOMI, conjunctivae clear. NECK: Supple. No adenopathy, no masses. RESPIRATORY: Airway patent, respirations nonlabored. Clear to auscultation bilaterally, no rales, rhonchi, wheezing. CARDIOVASCULAR: Regular rate and rhythm without murmurs rubs or gallops. ABDOMINAL: Soft, nontender, nondistended, normal bowel sounds MUSCULOSKELETAL: Moves all extremities. Strength/ROM intact, No edema, No calf tenderness. NEURO: Alert. Cranial nerves II through XII intact. Grossly intact SKIN: Warm, dry. Normal Color Course Consultations Consultation #1: Consulted Dr. Wallace, the patient's AGRICULTURAL ADVISER. Vital Signs Vital signs: Vital Signs Temperature 97.5 F L 10/26/21 11:31 Pulse Rate 122 H 10/26/21 11:31 Respiratory Rate 18 10/26/21 11:31 Blood Pressure 138/95 H 10/26/21 11:31 Pulse Oximetry 100 10/26/21 11:31 Oxygen Delivery Room Air 10/26/21 11:31 Temperature 97.5 F L 10/26/21 11:31 Pulse Rate 122 H 10/26/21 11:31 Respiratory Rate 18 10/26/21 11:31 Blood Pressure 138/95 H 10/26/21 11:31 Pulse Oximetry 100 10/26/21 11:31 Oxygen Delivery Room Air 10/26/21 11:31 Medical Decision Making Vital Signs Vital Signs: Vital Signs Temperature 97.5 F L 10/26/21 11:31 Pulse Rate 122 H 10/26/21 11:31 Respiratory Rate 18 10/26/21 11:31 Blood Pressure 138/95 H 10/26/21 11:31 Pulse Oximetry 100 10/26/21 11:31 Oxygen Delivery Room Air 10/26/21 11:31 Temperature 97.5 F L 10/26/21 11:31 Pulse Rate 122 H 10/26/21 11:31 Respiratory Rate 18 10/26/21 11:31 Blood Pressure 138/95 H 10/26/21 11:31 Pulse Oximetry 100 10/26/21 11:31 Oxygen Delivery Room Air 10/26/21 11:31 Discharge Plan Discharge Prescriptions: No Action g
[2021-10-26 12:27] LABS: Basophils Percent Auto 0.2 % (0.2-1.2); Eosinophils Percent Auto 0.2 % (0-4.4); Hematocrit 36.2 % (37.0-47.0); Hemoglobin 12.6 g/dL (12.0-15.0); Immature Granulocyte Absolute 0.07 K/mm3 (0.00-0.031); Immature Granulocyte Percent A 0.6 % (0-0.5); Lymphocytes Absolute Auto 0.73 K/mm3 (0.9-3.2); Mean Corpuscular HGB Conc 34.8 g/dl (32-36); Mean Corpuscular Hemoglobin 31.3 pg (26-34); Mean Platelet Volume 9.2 fl (7.4-10.4); Monocytes Absolute Auto 0.2 K/mm3 (0.1-0.6); Monocytes Percent Auto 1.8 % (2.6-8.5); Neutrophils Absolute Auto 11.2 K/mm3 (1.3-6.7); Neutrophils Percent Auto 91.2 % (45.5-73.1); Platelet Count Result 248 k/mm3 (150-375); Red Blood Count 4.02 M/mm3 (4.2-5.4); Red Cell Distribution Width 13.6 % (11.5-14.5); White Blood Count 12.2 K/mm3 (4.5-10.0)
[2021-10-26 12:28] LABS: Appearance Urine Clear (Clear); Bilirubin Urine Negative (Negative); Blood Urine 1+ (Negative); Glucose Urine UA Negative (Negative); Ketones Urine Negative (Negative); Leukocyte Esterase Ur 2+ LEU/UL (Negative); Nitrate Urine Negative (Negative); Protein Urine Negative (Negative); Urobilinogen Urine 0.2 mg/dL (<2.0); pH Urine 7.5 (5.0-9.0)
[2021-10-26 12:37] LABS: Add Urine Microscopic? YES; Color Urine Light Yellow (Yellow)
[2021-10-26 12:39] LABS: Alanine Aminotransferase 13 U/L (6-35); Albumin Level 3.9 g/dL (3.5-5.1); Alkaline Phosphatase 45 U/L (38-126); Anion Gap 7 mmol/L (8-16); Aspartate Amino Transferase 19 U/L (14-36); Bacteria Urine Trace /hpf; Bilirubin,Total 0.6 mg/dL (0.2-1.3); Blood Urea Nitrogen 6 mg/dL (7-17); Calcium 8.4 mg/dL (8.4-10.2); Carbon Dioxide 21 mmol/L (22-30); Chloride 108 mmol/L (98-107); Estimated CRCL calculation 127 ml/min; Estimated Glomerular Filt Rate > 60; Glucose 103 mg/dL (65-110); Potassium 3.6 mmol/L (3.4-5.0); RBC Urine 0-2 /hpf (0-2); Sodium 136 mmol/L (137-145); Squamous Epithelial Cell Urine Few /hpf (Few); WBC Urine 0-3 /hpf
== END 2021-10-26 13:23 | disposition home or self-care (01) ==
PROVIDERS: Emergency Provider Emergency Medicine; PCP Student in an Organized Health Care Education/Training Program
DX: O26.851 Spotting complicating pregnancy, first trimester (principal); O21.0 Mild hyperemesis gravidarum; Z3A.13 13 weeks gestation of pregnancy
CPT/HCPCS: 36415; 80053; 81001; 81025; 85025; 99283

== ENCOUNTER 2021-11-12 12:39 | Emergency (ER) | payer OTHER, SELFPAY ==
[2021-11-12 12:43] VITALS: PULSE 133; RESP 18; TEMP 36.8; O2SAT 100
--- NOTE | 2021-11-12 13:13 | ED.GENADULT ---
HPI - General Adult General Chief complaint: Unspecified Stated complaint: PICC not flushing/ Time Seen by Provider: 11/12/21 12:50 History of Present Illness HPI narrative: Pt says her PICC line was slow to flush today and she treated with heparin and it flushed but still not easily. Pt says about an hour later she felt palpitations which have now resolved. Pt is 15 weeks and has PICC for hyperemesis. Vomiting is under control. Related Data Home Medications Medication Instructions Recorded Confirmed granisetron HCl 1 mg tablet 1 mg PO BID 09/13/21 09/13/21 pantoprazole 20 mg tablet,delayed 20 mg PO BID 09/13/21 09/13/21 release Allergies Allergy/AdvReac Type Severity Reaction Status Date / Time diphenhydramine AdvReac Intermediate Nervousness Verified 11/12/21 13:01 loratadine AdvReac Unknown NERVOUSNESS Verified 11/12/21 13:01 Grass Allergy Intermediate Dyspnea / Uncoded 11/12/21 13:01 SOB Review of Systems Review of Systems: All systems reviewed & are unremarkable except as noted in HPI and below Exam Const: General: cooperative, healthy appearing and comfortable Nutritional Appearance: average body habitus and well nourished Orientation/consciousness: patient oriented x3 Limitations: no limitations HENMT: Head: normal to inspection and atraumatic Eyes: Conjunctivae: conjunctivae normal Pupils: Equal, round and reactive pupils present EOM: EOMs intact bilaterally Neck: Neck: normal visual inspection Resp: Effort & Inspection: normal respiratory effort Auscultation: clear to auscultation bilaterally Cardio: Jugular venous distension: no JVD Rate: tachycardic Rhythm: regular rhythm GI: GI Palp: Yes Soft to palpation Auscultation: normal bowel sounds Skin: General skin exam: normal color Neuro: General: patient oriented x3 and no focal motor deficits Cognition (Neuro): normal cognition Speech: normal speech Motor exam (neuro): 5/5 motor strength present throughout Extrem: General: normal to inspection, full ROM and capillary refill normal Psych: Appearance: grossly normal Mental Status: mental status grossly normal Speech and movement: Normal speech and movement present Affect: normal affect Attitude: cooperative Course Vital Signs Vital signs: Vital Signs Temperature 98.3 F 11/12/21 12:43 Pulse Rate 133 H 11/12/21 12:43 Respiratory Rate 18 11/12/21 12:43 Pulse Oximetry 100 11/12/21 12:43 Temperature 98.3 F 11/12/21 12:43 Pulse Rate 129 H 11/12/21 14:09 Respiratory Rate 26 H 11/12/21 14:09 Blood Pressure 150/91 H 11/12/21 14:09 Pulse Oximetry 97 11/12/21 14:09 Medical Decision Making Vital Signs Vital Signs: Vital Signs Temperature 98.3 F 11/12/21 12:43 Pulse Rate 133 H 11/12/21 12:43 Respiratory Rate 18 11/12/21 12:43 Pulse Oximetry 100 11/12/21 12:43 Temperature 98.3 F 11/12/21 12:43 Pulse Rate 129 H 11/12/21 14:09 Respiratory Rate 26 H 11/12/21 14:09 Blood Pressure 150/91 H 11/12/21 14:09 Pulse Oximetry 97 11/12/21 14:09 Lab Data Result diagrams: 11/12/21 13:07 11/12/21 13:07 Labs: Lab Results 11/12/21 11/12/21 11/12/21 Range/Units 13:07 13:07 13:07 WBC 11.8 H (4.5-10.0) K/mm3 RBC 3.84 L (4.2-5.4) M/mm3 Hgb 12.1 (12.0-15.0) g/dL Hct 36.1 L (37.0-47.0) % MCV 94.0 (80-100) fl MCH 31.5 (26-34) pg MCHC 33.5 (32-36) g/dl RDW 15.3 H (11.5-14.5) % Plt Count 303 (150-375) k/mm3 MPV 8.6 (7.4-10.4) fl Immature Gran % (Auto) 0.5 (0-0.5) % Neut % (Auto) 92.7 H (45.5-73.1) % Lymph % (Auto) 5.0 L (18.3-44.2) % [place] % (Auto) 1.5 L (2.6-8.5) % Eos % (Auto) 0.1 (0-4.4) % Baso % (Auto) 0.2 (0.2-1.2) % Lymph # (Auto) 0.59 L (0.9-3.2) K/mm3 [place] # (Auto) 0.2 (0.1-0.6) K/mm3 Eos # (Auto) 0.0 (0-0.3) K/mm3 Baso # (Auto) 0.0 (0.0-0.1) K/mm3 Abs Immat Gran (auto) 0.0
[2021-11-12 13:14] LABS: Basophils Percent Auto 0.2 % (0.2-1.2); Eosinophils Percent Auto 0.1 % (0-4.4); Hematocrit 36.1 % (37.0-47.0); Hemoglobin 12.1 g/dL (12.0-15.0); Immature Granulocyte Absolute 0.06 K/mm3 (0.00-0.031); Immature Granulocyte Percent A 0.5 % (0-0.5); Lymphocytes Absolute Auto 0.59 K/mm3 (0.9-3.2); Mean Corpuscular HGB Conc 33.5 g/dl (32-36); Mean Corpuscular Hemoglobin 31.5 pg (26-34); Mean Platelet Volume 8.6 fl (7.4-10.4); Monocytes Absolute Auto 0.2 K/mm3 (0.1-0.6); Monocytes Percent Auto 1.5 % (2.6-8.5); Neutrophils Percent Auto 92.7 % (45.5-73.1); Platelet Count Result 303 k/mm3 (150-375); Red Blood Count 3.84 M/mm3 (4.2-5.4); Red Cell Distribution Width 15.3 % (11.5-14.5); White Blood Count 11.8 K/mm3 (4.5-10.0)
--- NOTE | 2021-11-12 13:20 | PC.NURSE ---
patient presented with dual PICC line that she complains is sluggish to flush. flushed dual ports and lines are sluggish. line that patient is receiving zofran is more sluggish than the other line, however, patient is not receiving any messages regarding blockage via infusion.
[2021-11-12 13:25] LABS: Alanine Aminotransferase 17 U/L (6-35); Albumin Level 3.9 g/dL (3.5-5.1); Alkaline Phosphatase 40 U/L (38-126); Anion Gap 9 mmol/L (8-16); Aspartate Amino Transferase 23 U/L (14-36); Bilirubin,Total 0.8 mg/dL (0.2-1.3); Blood Urea Nitrogen 8 mg/dL (7-17); Calcium 8.4 mg/dL (8.4-10.2); Carbon Dioxide 18 mmol/L (22-30); Chloride 108 mmol/L (98-107); Estimated CRCL calculation 127 ml/min; Estimated Glomerular Filt Rate > 60; Glucose 136 mg/dL (65-110); Partial Thromboplastin Time 26.3 SECONDS (22.3-36.8); Potassium 3.8 mmol/L (3.4-5.0); Sodium 135 mmol/L (137-145)
[2021-11-12 14:09] VITALS: BP 150/91; PULSE 129; RESP 26; O2SAT 97
== END 2021-11-12 14:09 | disposition home or self-care (01) ==
PROVIDERS: Emergency Provider Emergency Medicine; PCP Student in an Organized Health Care Education/Training Program
DX: O26.892 Other specified pregnancy related conditions, second trimester (principal); R00.2 Palpitations; O21.0 Mild hyperemesis gravidarum; Z3A.15 15 weeks gestation of pregnancy
CPT/HCPCS: 36415; 80053; 85025; 85730; 99283

== ENCOUNTER 2022-01-26 18:24 | Observation (INO) | payer OTHER, SELFPAY ==
[2022-01-26] VITALS (8 sets, daily range): BP systolic 129–145; BP diastolic 87–92; PULSE 91–109; TEMP 36.4; O2SAT 98–99; BMI 26.4
--- NOTE | 2022-01-26 18:24 | OBADM ---
This patient, Roxi Shepard, admitted to the OB room OB Post 115 for observation. Patient/family oriented to hospital policies and general routines including ID bracelet, bed and alarms, visiting hours, pain management, procedures, bathroom and other care routines, personal items, smoking policy, room service/diet, and visiting hours. Patient/Family are encouraged to report perceived risks to care and to ask questions if they do not understand what they are told or what they should do.
--- NOTE | 2022-01-26 18:58 | PC.NURSE ---
Dr. Wallace at bedside. Dr. Wallace discussed plan of care with patient. Patient states understanding of plan of care and denies questions.
--- NOTE | 2022-01-26 19:01 | PM.IMHP ---
H&P: HPI History of Present Illness Date/Time: 01/26/22 19:01 Chief Complaint: Contractions Narrative: this patient is a 31-year-old multiparous female at 27 weeks gestation who reports contractions. She has a history of cervical incompetence and delivery. She denies any loss of fluid or vaginal bleeding. She does report some rhythmic mild contractions were the entire abdomen heart tones. She denies any chest pain shortness of breath. She denies any nausea, vomiting, fever, chills. Review of Systems Review of Systems: All systems reviewed & are unremarkable except as noted in HPI and below Constitutional: Constitutional: Denies chills, Denies fatigue, Denies fever(s) and Denies weakness Eyes: Eyes: Denies blurry vision, Denies change in vision, Denies loss of peripheral vision, Denies loss of vision, Denies other visual disturbances and Denies eye pain ENT: Denies vertigo, Denies dizziness, Denies hearing loss, Denies mouth pain, Denies nasal obstruction, Denies neck mass and Denies neck pain Cardiovascular: Cardiovascular: Denies chest pain, Denies diaphoresis, Denies syncope, Denies leg edema and Denies dyspnea Respiratory: Respiratory: Denies chest congestion, Denies cough, Denies hemoptysis, Denies dyspnea and Denies wheezing Gastrointestinal: Gastrointestinal: Denies abdominal pain, Denies constipation, Denies diarrhea, Denies nausea and Denies vomiting Genitourinary: Genitourinary: Denies hematuria, Denies change in libido, Denies nocturia, Denies genital lesions, Denies flank pain and Denies urinary urgency Musculoskeletal: Musculoskeletal: Denies abnormal gait, Denies back pain, Denies myalgias, Denies arthralgias, Denies joint swelling, Denies muscle weakness and Denies neck pain Integumentary/Breasts: Skin/Breast: Denies swelling, Denies breast pain, Denies breast mass, Denies dry skin, Denies nipple discharge, Denies unusual bruising and Denies jaundice Neurologic: Denies Neuro-related abnormal movements, Denies Abnormal speech present, Denies abnormal gait, Denies behavioral changes, Denies confusion, Denies vertigo, Denies dizziness, Denies syncope, Denies loss of vision, Denies memory loss, Denies convulsions and Denies weakness Psychiatric: Psychiatric: Denies abnormal sleep pattern, Denies behavioral changes, Denies change in libido, Denies confusion, Denies depression, Denies anhedonia and Denies memory loss Endocrine: Endocrine: Reports no additional endocrine complaints, Denies change in libido and Denies fatigue Hematologic/Lymphatic: Hematologic/Lymphatic: Reports no additional hematologic/lymphatic complaints Allergic/Immunologic: Allergic/Immunologic: Reports no additional allergic/immunologic complaints and Denies wheezing Meds Home Medications and Allergies Home Medications Medication Instructions Recorded Confirmed Type acetaminophen 500 mg tablet 1,000 mg PO Q6H PRN Pain or 09/13/21 01/26/22 Rx headache granisetron HCl 1 mg tablet 1 mg PO BID 09/13/21 01/26/22 History pantoprazole 20 mg tablet,delayed 20 mg PO BID 09/13/21 01/26/22 History release Allergies Allergy/AdvReac Type Severity Reaction Status Date / Time diphenhydramine AdvReac Intermediate Nervousness Verified 11/12/21 13:01 loratadine AdvReac Unknown NERVOUSNESS Verified 11/12/21 13:01 Grass Allergy Intermediate Dyspnea / Uncoded 11/12/21 13:01 SOB Vital Signs Vital Signs - 24 hr 01/26/22 18:41 01/26/22 18:46 01/26/22 18:48 Pulse Rate 109 H Blood Pressure 145/92 H Pulse Oximetry 99 99 01/26/22 18:51 01/26/22 18:56 01/26/22 19:01 Pulse Rate Blood Pressure Pulse Oximetry 98 98 98 Exam Const: General: cooperative, healthy appearing, comfortable and no acute distress; No confusion Orientation/consciousness: oriented to person, oriented to place, oriented to time and No confusion HENMT: Head: normal to inspection Ears: external ears normal General nose exam: Normal ext
[2022-01-26 19:24] LABS: Appearance Urine Clear (Clear); Bilirubin Urine Negative (Negative); Blood Urine Negative (Negative); Glucose Urine UA Negative (Negative); Ketones Urine 2+ mg/dL (Negative); Leukocyte Esterase Ur 1+ LEU/UL (Negative); Nitrate Urine Negative (Negative); Protein Urine Negative (Negative); Specific Grav Ur 1.015 (1.001-1.035); Urobilinogen Urine 0.2 mg/dL (<2.0); pH Urine 6.5 (5.0-9.0)
[2022-01-26 19:36] LABS: Mucus Urine Rare /lpf; RBC Urine 0-2 /hpf (0-2); Squamous Epithelial Cell Urine Occasional /hpf (Few); WBC Urine 0-3 /hpf
[2022-01-26 19:38] LABS: Add Urine Microscopic? YES; Color Urine Light Yellow (Yellow)
--- NOTE | 2022-01-26 21:19 | PC.NURSE ---
Moisés TAYLOR called Dr. Wallace with update on PT. Reported FHT, labs, PT complaining of some contractions. Occasional contractions noted per toco. Orders received to give fluid bolus (D5,LR) and a dose of Terbutaline.
--- NOTE | 2022-01-26 21:40 | PC.NURSE ---
RNMoisés at bedside. Discussed plan of care with PT. PT refused Terbutaline. Dr. Wallace notified.
[2022-01-26] MEDS: DEXTROSE 5%/LACTATED RINGERS 1,000 ML 100 ML IV CONT (22:01)
--- NOTE | 2022-01-26 23:21 | PC.NURSE ---
RNMoisés called DR. Wallace with update on PT. Reported fluid bolus completed, FHT, no contractions noted per toco, PT denies feeling any contractions. PT comfortable going home. Discharge orders received.
== END 2022-01-26 23:43 | disposition home or self-care (01) ==
PROVIDERS: Admitting Provider Obstetrics & Gynecology; PCP Student in an Organized Health Care Education/Training Program; Visit Provider Obstetrics & Gynecology
DX: O47.02 False labor before 37 completed weeks of gestation, second trimester (principal); Z3A.27 27 weeks gestation of pregnancy; O09.219 Supervision of pregnancy with history of pre-term labor, unspecified trimester; O34.30 Maternal care for cervical incompetence, unspecified trimester; Z79.1 Long term (current) use of non-steroidal anti-inflammatories (NSAID); Z79.899 Other long term (current) drug therapy
CPT/HCPCS: 81001; G0378; G0379; J7121

== ENCOUNTER 2022-02-25 18:48 | Observation (INO) | payer OTHER, SELFPAY ==
[2022-02-25 19:12] VITALS: BMI 26.6
[2022-02-25 19:17] VITALS: BP 149/85; PULSE 100
[2022-02-25 19:31] VITALS: BP 126/80; PULSE 106
[2022-02-25 19:46] VITALS: BP 122/70; PULSE 104
--- NOTE | 2022-03-16 19:58 | PM.OBTRLD ---
OB - Triage/Final Diagnosis Visit Information Comments/Additional reasons for admission: I have assessed the risk for this patient, Roxi Shepard, and determined that she would benefit from observation care. Final Diagnosis (1) contractions: Code(s): O47.00 - False labor before 37 completed weeks of gestation, unspecified trimester Status: Acute
== END 2022-02-25 20:22 | disposition home or self-care (01) ==
PROVIDERS: Admitting Provider Obstetrics & Gynecology; PCP Student in an Organized Health Care Education/Training Program; Visit Provider Obstetrics & Gynecology
DX: O47.03 False labor before 37 completed weeks of gestation, third trimester (principal); O26.853 Spotting complicating pregnancy, third trimester; Z3A.30 30 weeks gestation of pregnancy
CPT/HCPCS: G0378; G0379

== ENCOUNTER 2022-02-28 11:34 | Outpatient (CLI) | payer OTHER, SELFPAY ==
[2022-02-28 12:15] VITALS: BP 131/89; PULSE 113
[2022-02-28 12:30] VITALS: BP 135/91; PULSE 103
[2022-02-28 12:45] VITALS: BP 131/86; PULSE 99
[2022-02-28 12:53] LABS: Add Urine Microscopic? YES; Appearance Urine Clear (Clear); Bilirubin Urine Negative (Negative); Blood Urine Negative (Negative); Color Urine Yellow (Yellow); Glucose Urine UA Trace mg/dL (Negative); Ketones Urine Negative (Negative); Leukocyte Esterase Ur 1+ LEU/UL (NEGATIVE); Nitrate Urine Negative (Negative); Protein Urine Negative (Negative); Urobilinogen Urine 0.2 mg/dL (<2.0); pH Urine 6.5 (5.0-9.0)
[2022-02-28 13:00] VITALS: BP 136/86; PULSE 100
[2022-02-28 13:12] LABS: Alanine Aminotransferase 19 U/L (6-35); Albumin Level 3.9 g/dL (3.5-5.1); Alkaline Phosphatase 72 U/L (38-126); Anion Gap 14 mmol/L (8-16); Aspartate Amino Transferase 21 U/L (14-36); Bilirubin,Total 0.3 mg/dL (0.2-1.3); Blood Urea Nitrogen 6 mg/dL (7-17); Calcium 8.5 mg/dL (8.4-10.2); Carbon Dioxide 18 mmol/L (22-30); Chloride 104 mmol/L (98-107); Estimated Glomerular Filt Rate > 60; Glucose 133 mg/dL (65-110); Potassium 3.3 mmol/L (3.4-5.0); Sodium 136 mmol/L (137-145); Uric Acid 2.4 mg/dL (2.5-7.5)
[2022-02-28 13:15] VITALS: BP 135/78; PULSE 85
[2022-02-28 13:49] LABS: Basophils Percent Auto 0.2 % (0.2-1.2); Hemoglobin 11.2 g/dL (12.0-15.0); Immature Granulocyte Absolute 0.06 K/mm3 (0.00-0.031); Immature Granulocyte Percent A 0.6 % (0-0.5); Lymphocytes Absolute Auto 0.74 K/mm3 (0.9-3.2); Mean Corpuscular HGB Conc 32.9 g/dl (32-36); Mean Corpuscular Hemoglobin 31.5 pg (26-34); Mean Corpuscular Volume 95.8 fl (80-100); Mean Platelet Volume 9.4 fl (7.4-10.4); Monocytes Absolute Auto 0.4 K/mm3 (0.1-0.6); Monocytes Percent Auto 3.9 % (2.6-8.5); Neutrophils Absolute Auto 9.3 K/mm3 (1.3-6.7); Neutrophils Percent Auto 88.3 % (45.5-73.1); Platelet Count Result 309 k/mm3 (150-375); Red Blood Count 3.55 M/mm3 (4.2-5.4); Red Cell Distribution Width 11.7 % (11.5-14.5); White Blood Count 10.5 K/mm3 (4.5-10.0)
[2022-02-28 14:01] LABS: RBC Urine 0-2 /hpf (0-2); Squamous Epithelial Cell Urine Rare /hpf (Few); WBC Urine 0-3 /hpf (0-3)
[2022-02-28 14:03] VITALS: BP 131/89; PULSE 103
[2022-02-28 15:49] LABS: Creatinine Urine 9.6 mg/dL; Total Protein Urine Random 14 mg/dL; Ur Ttl Prot Creatinine Ratio 1.46 mg/mg (0-0.20)
== END 2022-02-28 14:10 | disposition home or self-care (01) ==
LOC: ANHOBOP 11:41 → ANHOBPP 11:42
PROVIDERS: PCP Student in an Organized Health Care Education/Training Program; Visit Provider Obstetrics & Gynecology
DX: O13.9 Gestational [pregnancy-induced] hypertension without significant proteinuria, unspecified trimester (principal); Z3A.00 Weeks of gestation of pregnancy not specified
CPT/HCPCS: 36415; 59025; 80053; 81001; 82570; 84156; 84550; 85025; 87086; 87088; 99199

== ENCOUNTER 2022-03-03 09:38 | Outpatient (NON) | payer MEDICAID, SELFPAY ==
[2022-03-03 09:55] VITALS: BMI 26.9
[2022-03-03 13:19] LABS: Total Volume 24 Hour Urine 3450 ml
[2022-03-03 13:20] LABS: Collection Time Urine 24 HOURS; Patient Weight 142 Lbs; Total Volume 24 Hour Urine 3450 ml
[2022-03-03 13:36] LABS: Specific Gravity Ur 1.012
[2022-03-03 13:43] LABS: Creatinine Clearance Urine 223.4 ml/min (75-125); Creatinine Urine 35.1 mg/dL
[2022-03-03 13:50] LABS: Total Protein Urine 24 Hr 448 mg/24hr (28-141); Total Protein Urine Random 13 mg/dL
== END 2022-03-03 09:39 | disposition home or self-care (01) ==
PROVIDERS: PCP Student in an Organized Health Care Education/Training Program; Visit Provider Advanced Practice Midwife
DX: O13.9 Gestational [pregnancy-induced] hypertension without significant proteinuria, unspecified trimester (principal); Z3A.00 Weeks of gestation of pregnancy not specified
CPT/HCPCS: 81050; 82575; 84156

== ENCOUNTER 2022-04-11 10:19 | Outpatient (RCR) | payer OTHER, MEDICAID, SELFPAY ==
[2022-04-11 11:02] LABS: Hematocrit 33.8 % (37.0-47.0); Hemoglobin 10.8 g/dL (12.0-15.0); Mean Corpuscular Hemoglobin 28.6 pg (26-34); Mean Corpuscular Volume 89.4 fl (80-100); Mean Platelet Volume 9.6 fl (7.4-10.4); Platelet Count Result 244 k/mm3 (150-375); Red Blood Count 3.78 M/mm3 (4.2-5.4); Red Cell Distribution Width 13.1 % (11.5-14.5); White Blood Count 12.2 K/mm3 (4.5-10.0)
[2022-04-11 11:12] LABS: Alanine Aminotransferase 56 U/L (6-35); Albumin Level 3.8 g/dL (3.5-5.1); Alkaline Phosphatase 118 U/L (38-126); Anion Gap 8 mmol/L (8-16); Aspartate Amino Transferase 38 U/L (14-36); Bilirubin,Total 0.7 mg/dL (0.2-1.3); Blood Urea Nitrogen 5 mg/dL (7-17); Calcium 8.3 mg/dL (8.4-10.2); Carbon Dioxide 19 mmol/L (22-30); Chloride 107 mmol/L (98-107); Estimated Glomerular Filt Rate > 60; Glucose 100 mg/dL (65-110); Potassium 3.4 mmol/L (3.4-5.0); Sodium 134 mmol/L (137-145); Uric Acid 2.7 mg/dL (2.5-7.5)
== END 2022-07-10 23:59 | disposition home or self-care (01) ==
LOC: ANHOBOP 10:19
PROVIDERS: PCP Student in an Organized Health Care Education/Training Program; Visit Provider Obstetrics & Gynecology
DX: O26.899 Other specified pregnancy related conditions, unspecified trimester (principal); R03.0 Elevated blood-pressure reading, without diagnosis of hypertension; Z3A.00 Weeks of gestation of pregnancy not specified
CPT/HCPCS: 36415; 80053; 84550; 85027

== ENCOUNTER 2022-04-11 11:55 | Inpatient (IN) | payer OTHER, MEDICAID, SELFPAY ==
[2022-04-11] VITALS (19 sets, daily range): BP systolic 127–145; BP diastolic 72–106; PULSE 87–125; RESP 16–18; TEMP 36.6; O2SAT 96–100; BMI 26.5
--- OUTSIDE RECORDS SUMMARY | 2022-04-11 12:09 | XMS_ITS | Continuity of Care Document ---
:1990 Author Organization [facility] Care Team Providers Name Role Phone [facility] Unavailable Unavailable Problems Combined list of problems from Department of Defense and Veterans Affairs facilities. It does not include entries that were removed or entered in error. Problem Status Onset Date Problem Type Date of Comments Source Resolution nonmenstrual Inactive 12/25/2013 Condition [facility]D bleeding excessive facial or Inactive Condition DoD body hair (hirsutism) polycystic ovarian Active Condition D oD syndrome visit for: Inactive Condition DoD laboratory Back Muscle Spasm Active Condition Do D lumbago Active Condition DoD Aftercare Following Inactive Condition DoD Surgery Of Genitourinary System missed Inactive Condition DoD Education Active Condition D oD Initial Visit visit for: Inactive Condition DoD follow-up exam bleeding during Inactive Condition DoD Test Inactive Condition DoD Positive visit for: Inactive Condition DoD administrative purpose urinary tract Inactive Condition DoD infection pyelonephritis Inactive Condition DoD
--- OUTSIDE RECORDS SUMMARY | 2022-04-11 12:12 | XMS_ITS ---
:1990 Author Care Team Providers Name Role Phone RAYMOND GUERRERO DO Primary Care Provider [phone] Allergies Code Code System Name Reaction Severity Status Onset Adhesive ? ? Active ? Antihistamines - Alkylamine ? ? Ac tive ? 7531 RxNorm Nortriptyline ? ? Active ? 890248 RxNorm Topamax ? ? Active ? 59603 RxNorm Tramadol ? ? Active ? Medications Name Status Start Date Stop Date ? ? Anusol-HC 2.5 % topical cream with perineal applicator Completed 03/27/2016 06/18/2016 apply by topical route 2 times every day to the affected area(s ) hryphqhltd-tgjxzswjayvyw-fuxlccud 50 mg-300 Active ? Not available mg-40 mg capsule cefdinir 300 mg capsule Completed ? 09/07/19 22 chlorpromazine 25 mg tablet Completed 10/30/201510/31 take 1 tablet by oral route every 6 hours as needed compound drug Active ? Not available Endometrin 100 mg vaginal insert Completed 02/29/2016 05/27/2016 insert 1 vaginal insert by vaginal route every night FreeStyle Lancets 28 gauge Active ? Not a vailable FreeStyle Lite Meter kit Active ? Not teo ilable USE DIRECTED FreeStyle Lite Strips Active ? Not availa ble granisetron HCl 1 mg tablet Active ? Not available Humulin N NPH U-100 Insulin (isophane susp) 100 Active ? Not available unit/mL subcutaneous insulin syringe U-100 with needle 1 mL 31 gauge x 5/16 Active ? Not available USE WITH HUMULIN DIRECTED TWICE DAILY K-Effervescent 25 mEq tablet Completed 11/08/2015 take 1 tablet by oral route every day dissolved in 120-240 mL o f cold water meclizine 25 mg tablet Completed 10/30/2015
--- OUTSIDE RECORDS SUMMARY | 2022-04-11 12:12 | XMS_ITS | Encounter Summary ---
:1990 Author Care Team Providers Name Role Phone Pako Juan DO Primary Care Provider [phone] Reason for Visit None recorded. Assessment and Plan 1. Gestational diabetes mellitus, class A>1< ? non-stress test Discussion Note: None recorded.Patient educational handouts: No information available. Plan of Care Reminders Provider Appointments Induction 04/14/2022 12:01AM Carrol bonilla CNM Lab None recorded. ? ? Referral None recorded. ? ? Procedures None recorded. ? ? Surgeries None recorded. ? ? Imaging Non-stress Test 04/01/2022 [place] Medications Name Start Date ? ? vdamqkijko-tzwcsuprmtnfp-olngxlbr 50 mg-300 mg-40 mg c apsule ? Take 1 tablet PO every 6 hours as needed. compound drug ? FreeStyle Lancets 28 gauge ? FreeStyle Lite Meter kit ? USE DIRECTED FreeStyle Lite Strips ? granisetron HCl 1 mg tablet ? TAKE 1 TABLET BY MOUTH TWICE DAILY( EVERY TWELVE HOUR S) Humulin N NPH U-100 Insulin (isophane susp) 100 unit/m L subcutaneous ? INJECT 7 UNITS EVERY MORNING AND 7 UNITS EVERY AT BED TIME DIRECTED insulin syringe U-100 with needle 1 mL 31 gauge x 5/16 ? USE WITH HUMULIN DIRECTED TWICE DAILY Nurte ODT 75 mg disintegrating tablet ? ondansetron 4 mg disintegrating tablet ? pantoprazole 20 mg tablet,delayed release ? Take 1 tablet twice a day by oral route. prednisolone 15 mg/5 mL oral solution ? TAKE 4ML BY MOUTH 4 TIMES DAILY scopolamine 1 mg over 3 days transdermal patch ? APPLY 1 PATCH TOPICALLY TO THE SKIN EVERY 48 TO 72 HO URS Medications Administered None recorded. Vitals Blood Pressure
--- OUTSIDE RECORDS SUMMARY | 2022-04-11 12:12 | XMS_ITS | Encounter Summary ---
:1990 Author Care Team Providers Name Role Phone Pako Juan Primary Care Provider [phone] Reason for Visit OB visit OB [id number] EDC 05/04/2022 LMP 07/28/2021 Assessment and Plan Assessment Note Patient is _35__weeks . Discuss ed plan. 1. Routine care 2. -induced hypertension ? CBC w/ auto diff ? CMP, serum or plasma ? uric acid, serum or plasma Discussion Note: None recorded.Patient educational handouts: No information available. Plan of Care Reminders Provider Appointments Induction 04/14/2022 Carrol Yu CNM 12:01AM Lab CBC W/ Auto Diff 04/04/2022 [facility] (Lab) ? CMP, Serum or Plasma 04/04/2022 [facility] (Lab) ? Uric Acid, Serum or Plasma 04/04/2022 [facility] (Lab) Referral None recorded. ? ? Procedures None recorded. ? ? Surgeries None recorded. ? ? Imaging None recorded. ? ? Medications Name Start Date ? ? wrxkxkjquq-pcbrkpozrfodv-vtobbmkv 50 mg-300 mg-40 mg c apsule ? [...] L subcutaneous ? INJECT 7 UNITS EVERY M
--- OUTSIDE RECORDS SUMMARY | 2022-04-11 12:12 | XMS_ITS | Encounter Summary ---
:1990 Author Care Team Providers Name Role Phone Pako Juan DO Primary Care Provider [phone] Reason for Visit None recorded. Assessment and Plan 1. Chronic hypertension complicating AN D/OR reason for care during ? US, obstetric, follow-up Discussion Note: None recorded.Patient educational handouts: No information available. Plan of Care Reminders Provider Appointments Induction 04/14/2022 Carrol Yu CNM 12:01AM Lab None recorded. ? ? Referral None recorded. ? ? Procedures None recorded. ? ? Surgeries None recorded. ? ? Imaging US, Obstetric, Follow-up 04/01/2022 [facility] Medications Name Start Date ? ? ndgfdhaopj-sqwhcbwfgekuy-rkbstxkm 50 mg-300 mg-40 mg c apsule ? [...]
--- OUTSIDE RECORDS SUMMARY | 2022-04-11 12:12 | XMS_ITS | Encounter Summary ---
:1990 Author Care Team Providers Name Role Phone Pako Juan DO Primary Care Provider [phone] Reason for Visit OB problem Assessment and Plan 1. Cervical incompetence Discussion Note: None recorded.Patient educational handouts: No information available. Plan of Care Reminders Provider Appointments Induction 04/14/2022 12:01AM Carrol bonilla CNM Lab None recorded. ? ? Referral None recorded. ? ? Procedures None recorded. ? ? Surgeries None recorded. ? ? Imaging None recorded. ? ? Medications Name Start Date ? ? twynxrioqt-qkzjqlthreifm-tfgjjprq 50 mg-300 mg-40 mg c apsule ? [...] ? USE WITH HUMULIN DIRECTED TWICE DAILY Nurtec ODT 75 mg disintegrating tablet ? ondansetron [...] HO URS Medications Administered None recorded. Vitals Height Weight BMI Blood Pressure 5 ft 0.5 in 138 lbs 26.5 kg/m2 155/110 mm[Hg]
--- OUTSIDE RECORDS SUMMARY | 2022-04-11 12:12 | XMS_ITS | Encounter Summary ---
:1990 Author Care Team Providers Name Role Phone Pako Juan DO Primary Care Provider [phone] Reason for Visit None recorded. Assessment and Plan 1. -induced hypertension ? non-stress test Discussion Note: None recorded.Patient educational handouts: No information available. Plan of Care Reminders Provider Appointments Induction 04/14/2022 12:01AM Carrol bonilla CNM Lab None recorded. ? ? Referral None recorded. ? ? Procedures None recorded. ? ? Surgeries None recorded. ? ? Imaging Non-stress Test 04/04/2022 [place] Medications Name Start Date ? ? kxqivlgfgz-mckyncjrfoscp-dalszzdc 50 mg-300 mg-40 mg c apsule ? [...] HO URS Medications Administered None recorded. Vitals None recorded. Results Lab Results
--- OUTSIDE RECORDS SUMMARY | 2022-04-11 12:12 | XMS_ITS | Encounter Summary ---
:1990 Author Care Team Providers Name Role Phone Pako Juan DO Primary Care Provider [phone] Reason for Visit None recorded. Assessment and Plan 1. Gestational diabetes mellitus, class A>1< ? non-stress test Discussion Note: None recorded.Patient educational handouts: No information available. Plan of Care Reminders Provider Appointments Induction 04/14/2022 12:01AM Carrol bonilla CNM Lab None recorded. ? ? Referral None recorded. ? ? Procedures None recorded. ? ? Surgeries None recorded. ? ? Imaging Non-stress Test 04/11/2022 [place] Medications Name Start Date ? ? hwaeeazwcz-benebvrhrtzet-qayllkxm 50 mg-300 mg-40 mg c apsule ? [...]
--- OUTSIDE RECORDS SUMMARY | 2022-04-11 12:12 | XMS_ITS | Encounter Summary ---
:1990 Author Care Team Providers Name Role Phone Pako Juan DO Primary Care Provider [phone] Reason for Visit None recorded. Assessment and Plan 1. Gestational diabetes mellitus, class A>1< ? non-stress test Discussion Note: None recorded.Patient educational handouts: No information available. Plan of Care Reminders Provider Appointments Induction 04/14/2022 12:01AM Carrol bonilla CNM Lab None recorded. ? ? Referral None recorded. ? ? Procedures None recorded. ? ? Surgeries None recorded. ? ? Imaging Non-stress Test 04/08/2022 [place] Medications Name Start Date ? ? wdmpoeusmr-ofqxjakilzulm-qqhqdfvv 50 mg-300 mg-40 mg c apsule ? [...]
--- OUTSIDE RECORDS SUMMARY | 2022-04-11 12:13 | XMS_ITS | Encounter Summary ---
:1990 Author Care Team Providers Name Role Phone Pako Juan DO Primary Care Provider [phone] Reason for Visit None recorded. Assessment and Plan 1. Gestational diabetes mellitus, class A>1< ? non-stress test Discussion Note: None recorded.Patient educational handouts: No information available. Plan of Care Reminders Provider Appointments Induction 04/14/2022 12:01AM Carrol bonilla CNM Lab None recorded. ? ? Referral None recorded. ? ? Procedures None recorded. ? ? Surgeries None recorded. ? ? Imaging Non-stress Test 03/11/2022 [place] Medications Name Start Date ? ? xvrcjllzhw-hlgcfrsdijekz-zijrjdbt 50 mg-300 mg-40 mg c apsule ? [...] ? USE WITH HUMULIN [facility] ? ondansetron [...] Administered None recorded. Vitals None recorded. Results L
--- OUTSIDE RECORDS SUMMARY | 2022-04-11 12:13 | XMS_ITS | Encounter Summary ---
:1990 Author Care Team Providers Name Role Phone Pako Juan DO Primary Care Provider [phone] Reason for Visit OB visit OB [id number] EDC 05/04/2022 LMP 07/28/2021 Assessment and Plan Assessment Note Patient is __28_weeks . Discuss ed plan. 1. Routine care Discussion Note: None recorded.Patient educational handouts: No information available. Plan of Care Reminders Provider Appointments Induction 04/14/2022 12:01AM Carrol bonilla CNM Lab None recorded. ? ? Referral None recorded. ? ? Procedures None recorded. ? ? Surgeries None recorded. ? ? Imaging None recorded. ? ? Medications Name Start Date ? ? gnyoxnqudb-otnxvtvnjmutw-oqmwmiow 50 mg-300 mg-40 mg c apsule ? [...]
--- OUTSIDE RECORDS SUMMARY | 2022-04-11 12:13 | XMS_ITS | Encounter Summary ---
:1990 Author Care Team Providers Name Role Phone Pako Juan DO Primary Care Provider [phone] Reason for Visit None recorded. Assessment and Plan 1. Gestational diabetes mellitus, class A>1< ? non-stress test Discussion Note: None recorded.Patient educational handouts: No information available. Plan of Care Reminders Provider Appointments Induction 04/14/2022 12:01AM Carrol bonilla CNM Lab None recorded. ? ? Referral None recorded. ? ? Procedures None recorded. ? ? Surgeries None recorded. ? ? Imaging Non-stress Test 03/07/2022 [place] Medications Name Start Date ? ? xildmiycdj-sxvianjxbkeaf-kvdykxtn 50 mg-300 mg-40 mg c apsule ? [...] ? USE WITH HUMULIN [facility] ? ondansetron [...] Administered None recorded. Vitals None recorded. Results [place]
--- OUTSIDE RECORDS SUMMARY | 2022-04-11 12:13 | XMS_ITS | Encounter Summary ---
:1990 Author Care Team Providers Name Role Phone Pakoalo Hernandezleonelnikia Primary Care Provider [phone] Reason for Visit OB visit OB [id number] EDC 05/04/2022 LMP 07/28/2021 Assessment and Plan Assessment Note Patient is _24__weeks . Discuss ed plan. 1. Hyperemesis gravidarum ? CMP, serum or plasma ? phosphorus, serum or plasma ? magnesium, serum or plasma 2. Routine care Discussion Note: None recorded.Patient educational handouts: No information available. Plan of Care Reminders Provider Appointments Induction 04/14/2022 Crarol Yu CNM 12:01AM Lab CMP, Serum or Plasma 01/17/2022 [facility] (Lab) ? Phosphorus, Serum or 01/17/2022 [facility] Plasma (Lab) ? Magnesium, Serum or Plasma 01/17/2022 [facility] (Lab) Referral None recorded. ? ? Procedures None recorded. ? ? Surgeries None recorded. ? ? Imaging None recorded. ? ? Medications Name Start Date ? ? mbpbjsrijo-psvljelhwycoi-asjwkhtn 50 mg-300 mg-40 mg c apsule ? [...] unit/m L subcutaneous ? INJECT 7 UNITS E
--- OUTSIDE RECORDS SUMMARY | 2022-04-11 12:13 | XMS_ITS | Encounter Summary ---
:1990 Author Care Team Providers Name Role Phone Pako Juan DO Primary Care Provider [phone] Reason for Visit None recorded. Assessment and Plan 1. Gestational diabetes mellitus, class A>1< ? non-stress test Discussion Note: None recorded.Patient educational handouts: No information available. Plan of Care Reminders Provider Appointments Induction 04/14/2022 12:01AM Carrol bonilla CNM Lab None recorded. ? ? Referral None recorded. ? ? Procedures None recorded. ? ? Surgeries None recorded. ? ? Imaging Non-stress Test 03/14/2022 [place] Medications Name Start Date ? ? xeqwuionir-xazzkuxvjmuun-imhiiqwp 50 mg-300 mg-40 mg c apsule ? [...] ? USE WITH HUMULIN [facility]ating [facility] ? [...]
--- OUTSIDE RECORDS SUMMARY | 2022-04-11 12:13 | XMS_ITS | Encounter Summary ---
:1990 Author Care Team Providers Name Role Phone Pako Juan Primary Care Provider [phone] Reason for Visit OB visit OB 33 [id number] EDC 05/04/2022 lmp 07/28/2021 Assessment and Plan Assessment Note Patient is ___weeks . Discussed plan. 1. Pre-eclampsia ? CBC w/ auto diff ? CMP, serum or plasma 2. Routine care Discussion Note: None recorded.Patient educational handouts: No information available. Plan of Care Reminders Provider Appointments Induction 04/14/2022 12:01AM Carrol bonilla CNM Lab CBC W/ Auto Diff 03/21/2022 [facility] (Lab) ? CMP, Serum or Plasma 03/21/[address] [facility] (Lab) Referral None recorded. ? ? Procedures None recorded. ? ? Surgeries None recorded. ? ? Imaging None recorded. ? ? Medications Name Start Date ? ? cyqwojdimn-vvuxmuohkgjnc-obduzavi 50 mg-300 mg-40 mg c apsule ? [...] with needle 1 mL 31 gauge x 16 ? USE WITH HUMULIN DIRECTED TWICE DAILY Nurtec ODT 75 mg disint
--- OUTSIDE RECORDS SUMMARY | 2022-04-11 12:13 | XMS_ITS | Encounter Summary ---
:1990 Author Care Team Providers Name Role Phone Pako Juan Primary Care Provider [phone] Reason for Visit OB problem Assessment and Plan 1. Routine care Discussion Note: None recorded.Patient educational handouts: No information available. Plan of Care Reminders Provider Appointments Induction 04/14/2022 12:01AM Carrol bonilla CNM Lab None recorded. ? ? Referral None recorded. ? ? Procedures None recorded. ? ? Surgeries None recorded. ? ? Imaging None recorded. ? ? Medications Name Start Date ? ? bpgyotullx-ikpdcfbrbxmyg-ecyubcbo 50 mg-300 mg-40 mg c apsule ? [...] BMI Blood Pressure 5 ft 0.5 in 142 lbs 27.3 kg/m2 168/101 mm[Hg]
--- OUTSIDE RECORDS SUMMARY | 2022-04-11 12:13 | XMS_ITS | Encounter Summary ---
:1990 Author Care Team Providers Name Role Phone Pako Juan DO Primary Care Provider [phone] Reason for Visit OB problem Assessment and Plan 1. Pre-eclampsia Discussion Note: None recorded.Patient educational handouts: No information available. Plan of Care Reminders Provider Appointments Induction 04/14/2022 12:01AM Carrol bonilla CNM Lab None recorded. ? ? Referral None recorded. ? ? Procedures None recorded. ? ? Surgeries None recorded. ? ? Imaging None recorded. ? ? Medications Name Start Date ? ? qmupqmbufc-bihaxsyslfemy-uuwtblda 50 mg-300 mg-40 mg c apsule ? [...] BMI Blood Pressure 5 ft 0.5 in 141 lbs 27.1 kg/m2 (1) 167/109 mm[ Hg]
--- OUTSIDE RECORDS SUMMARY | 2022-04-11 12:13 | XMS_ITS | Encounter Summary ---
:1990 Author Care Team Providers Name Role Phone Pako Juan DO Primary Care Provider [phone] Reason for Visit None recorded. Assessment and Plan 1. Gestational diabetes mellitus, class A>2< ? non-stress test Discussion Note: None recorded.Patient educational handouts: No information available. Plan of Care Reminders Provider Appointments Induction 04/14/2022 12:01AM Carrol bonilla CNM Lab None recorded. ? ? Referral None recorded. ? ? Procedures None recorded. ? ? Surgeries None recorded. ? ? Imaging Non-stress Test 03/28/2022 [place] Medications Name Start Date ? ? fhokpkdlzm-zxhplmvcnlcyq-dobanyld 50 mg-300 mg-40 mg c apsule ? [...] ? USE WITH HUMULIN [facility] [...]
--- OUTSIDE RECORDS SUMMARY | 2022-04-11 12:13 | XMS_ITS | Encounter Summary ---
:1990 Author Care Team Providers Name Role Phone Pako Juan DO Primary Care Provider [phone] Reason for Visit None recorded. Assessment and Plan 1. Gestational diabetes mellitus, class A>1< ? non-stress test Discussion Note: None recorded.Patient educational handouts: No information available. Plan of Care Reminders Provider Appointments Induction 04/14/2022 12:01AM Carrol bonilla CNM Lab None recorded. ? ? Referral None recorded. ? ? Procedures None recorded. ? ? Surgeries None recorded. ? ? Imaging Non-stress Test 03/18/2022 [place] Medications Name Start Date ? ? uwrinqaukt-tjoyynloresyf-tnnqsmol 50 mg-300 mg-40 mg c apsule ? [...] ? USE WITH HUMULIN DIRECTED TWICE DAILY [facility] disintegrating [facility] ? ondansetron [...]
--- OUTSIDE RECORDS SUMMARY | 2022-04-11 12:13 | XMS_ITS | Encounter Summary ---
:1990 Author Care Team Providers Name Role Phone Pako Juan DO Primary Care Provider [phone] Reason for Visit None recorded. Assessment and Plan 1. Gestational diabetes mellitus, class A>1< ? non-stress test Discussion Note: None recorded.Patient educational handouts: No information available. Plan of Care Reminders Provider Appointments Induction 04/14/2022 12:01AM Carrol bonilla CNM Lab None recorded. ? ? Referral None recorded. ? ? Procedures None recorded. ? ? Surgeries None recorded. ? ? Imaging Non-stress Test 03/25/2022 [place] Medications Name Start Date ? ? biwodgnsnq-edxofnynqavnw-jdiacpgl 50 mg-300 mg-40 mg c apsule ? [...]
--- OUTSIDE RECORDS SUMMARY | 2022-04-11 12:13 | XMS_ITS | Encounter Summary ---
:1990 Author Care Team Providers Name Role Phone Pako Juan DO Primary Care Provider [phone] Reason for Visit None recorded. Assessment and Plan 1. Gestational diabetes mellitus, class A>2< ? non-stress test Discussion Note: None recorded.Patient educational handouts: No information available. Plan of Care Reminders Provider Appointments Induction 04/14/2022 12:01AM Carrol bonilla CNM Lab None recorded. ? ? Referral None recorded. ? ? Procedures None recorded. ? ? Surgeries None recorded. ? ? Imaging Non-stress Test 03/21/2022 [place] Medications Name Start Date ? ? gfqbdchcuo-dsusmneupfpbr-gabnrcat 50 mg-300 mg-40 mg c apsule ? [...]
--- OUTSIDE RECORDS SUMMARY | 2022-04-11 12:13 | XMS_ITS | Encounter Summary ---
:1990 Author Care Team Providers Name Role Phone Pako Juan DO Primary Care Provider [phone] Reason for Visit OB visit PAtient here for OB visit 30.5 weeks Assessment and Plan Assessment Note Patient is ___weeks . Discussed plan. 1. Mild pre-eclampsia Discussion Note: None recorded.Patient educational handouts: No information available. Plan of Care Reminders Provider Appointments Induction 04/14/2022 12:01AM Carrol bonilla CNM Lab None recorded. ? ? Referral None recorded. ? ? Procedures None recorded. ? ? Surgeries None recorded. ? ? Imaging None recorded. ? ? Medications Name Start Date ? ? dlmezybznj-lynkcavwjkrzr-yobkolyv 50 mg-300 mg-40 mg c apsule ? [...] ? USE WITH HUMULIN [facility] [...]
--- OUTSIDE RECORDS SUMMARY | 2022-04-11 12:13 | XMS_ITS | Encounter Summary ---
:1990 Author Care Team Providers Name Role Phone Pako Juan Primary Care Provider [phone] Reason for Visit OB visit OB [id number] EDC 05/04/2022 LMP 07/28/2021 Assessment and Plan Assessment Note Patient is 32___weeks . Discuss ed plan. 1. Pre-eclampsia ? CBC w/ auto diff ? CMP, serum or plasma 2. Routine care Discussion Note: None recorded.Patient educational handouts: No information available. Plan of Care Reminders Provider Appointments Induction 04/14/2022 12:01AM Carrol bonilla CNM Lab CBC W/ Auto Diff 03/14/2022 [facility] (Lab) ? CMP, Serum or Plasma 03/14/2022 [facility] (Lab) Referral None recorded. ? ? Procedures None recorded. ? ? Surgeries None recorded. ? ? Imaging None recorded. ? ? Medications Name Start Date ? ? lvhghehbnv-iyavjvmbzqisz-vqxdlqxe 50 mg-300 mg-40 mg c apsule ? [...] DIRECTED TWICE DAILY Nurtec ODT 75 mg disin
--- OUTSIDE RECORDS SUMMARY | 2022-04-11 12:13 | XMS_ITS | Encounter Summary ---
:1990 Author Care Team Providers Name Role Phone Pako Juan DO Primary Care Provider [phone] Reason for Visit OB visit OB [id number] EDC 05/04/2022 LMP 07/28/2021 Assessment and Plan Assessment Note Patient is __34_weeks . Discuss ed plan. 1. Routine care Discussion Note: None recorded.Patient educational handouts: No information available. Plan of Care Reminders Provider Appointments Induction 04/14/2022 12:01AM Carrol bonilla CNM Lab None recorded. ? ? Referral None recorded. ? ? Procedures None recorded. ? ? Surgeries None recorded. ? ? Imaging None recorded. ? ? Medications Name Start Date ? ? fvcuyagroz-haxrelnhqypyz-gydrnefs 50 mg-300 mg-40 mg c apsule ? [...]
--- OUTSIDE RECORDS SUMMARY | 2022-04-11 12:14 | XMS_ITS | Encounter Summary ---
:1990 Author Care Team Providers Name Role Phone Pako Juan DO Primary Care Provider [phone] Reason for Visit None recorded. Assessment and Plan 1. Cervical incompetence ? US, obstetric, follow-up ? US, obstetric, transvaginal Discussion Note: None recorded.Patient educational handouts: No information available. Plan of Care Reminders Provider Appointments Induction 04/14/2022 Carrol Yu CNM 12:01AM Lab None recorded. ? ? Referral None recorded. ? ? Procedures None recorded. ? ? Surgeries None recorded. ? ? Imaging US, Obstetric, Follow-up 01/17/2022 [place] ? US, Obstetric, Transvaginal 01/17/2022 [facility] Medications Name Start Date ? ? jomhozqveb-mdimqhmgtgbmz-soyzieso 50 mg-300 mg-40 mg c apsule ? [...]
--- NOTE | 2022-04-11 13:15 | PM.IMHP ---
H&P: HPI History of Present Illness Date/Time: 04/11/22 13:15 Chief Complaint: pt being admitted to for preeclampsia with severe features, denied headache, visual changes, epigastric pain, liver enzymes elevated and had a severe range bp in the office. also complicated hx migraines, cervical incompetence with cerclage placement and removal at 36 weeks, hyperemsis with steroids daily for management, and GDMA-2, marginal cord insertion Review of Systems Review of Systems: All systems reviewed & are unremarkable except as noted in HPI and below PMFSH Family History Family History (Updated 04/04/22 @ 13:45 by Joel Hernandez RN) Mother Hypertension Father Skin cancer Sibling Skin cancer Grandparent Cerebrovascular accident Grandparent Cancer Social History Social History Substance use: never Spiritual care concerns: No Meds Home Medications and Allergies Home Medications Medication Instructions Recorded Confirmed Type acetaminophen 500 mg tablet 1,000 mg PO Q6H PRN Pain or 09/13/21 01/26/22 Rx headache pantoprazole 20 mg tablet,delayed 20 mg PO BID 09/13/21 01/26/22 History release granisetron HCl 1 mg tablet 1 mg PO Q12H 04/04/22 04/04/22 History insulin NPH isoph U-100 human 100 7 unit subcut BID 04/04/22 04/04/22 History unit/mL subcutaneous suspension (Humulin N NPH U-100 Insulin (isophane susp)) prednisolone 15 mg/5 mL oral 15 mg PO BID 04/04/22 04/04/22 History solution Allergies Allergy/AdvReac Type Severity Reaction Status Date / Time adhesive Allergy Itching Verified 04/04/22 13:37 nortriptyline Allergy Rash Verified 04/04/22 13:37 topiramate [From Topamax] Allergy Hives Verified 04/04/22 13:37 diphenhydramine AdvReac Intermediate Nervousness Verified 11/12/21 13:01 loratadine AdvReac Unknown NERVOUSNESS Verified 11/12/21 13:01 tramadol AdvReac Vomiting Verified 02/25/22 19:15 Grass Allergy Intermediate Dyspnea / Uncoded 11/12/21 13:01 SOB Vital Signs Vital Signs - 24 hr 04/11/22 13:00 Pulse Rate 93 Blood Pressure 132/83 Exam Const: General: cooperative and healthy appearing Chest: Chest palpation & inspection: normal inspection of the chest Cardio: Rate: regular rate Rhythm: regular rhythm GI: Inspection: other (gravid, soft) Assessment and Plan Assessment and plan (1) Preeclampsia: Code(s): O14.90 - Unspecified pre-eclampsia, unspecified trimester Status: Acute (2) Hyperemesis: Code(s): R11.10 - Vomiting, unspecified Status: Acute (3) Gestational diabetes: Code(s): O24.419 - Gestational diabetes mellitus in , unspecified control Status: Acute Plan 36.5 weeks gestation 1. severe preeclampsia 2.hyperemesis gravidarum 3. GDMA-2 4.marginal cord insertion reviewed with Dr. Wallace, start magnesium sulfate and proceed with Medical IOL
[2022-04-11] MEDS: LACTATED RINGERS 1,000 ML 75 ML IV CONT (13:17)
[2022-04-11] MEDS: OXYTOCIN 30 UNITS/NS 500 ML 30 UNITS/500 ML BAG IV CONT (13:18)
[2022-04-11] MEDS: MAGNESIUM SULF 4 GM/WATER100ML 4 GM/100 ML BAG IVPB (13:18)
--- NOTE | 2022-04-11 13:30 | LDADM ---
This patient, Roxi Shepard, was admitted to Labor/Delivery/Recovery 107 on 04/11/22 at 11:55. Plans for labor, pain management and were discussed with patient. Patient/family oriented to hospital policies and general routines including ID bracelet, bed and alarms, visiting hours, pain management, procedures, bathroom and other care routines, personal items, smoking policy, room service/diet and guest tray routines, infant security routines, and visiting hours. Patient/Family are encouraged to report perceived risks to care and to ask questions if they do not understand what they are told or what they should do. See OBIX for further documentation.
--- NOTE | 2022-04-11 13:33 | PM.OBPNLAB ---
Pain Control Date/time seen: 04/11/22 13:33 SVE / -2 AROM moderate amount of clear odorless fluid, anticipate vaginal delivery
[2022-04-11] MEDS: MAGNESIUM SULF 20GM/WATER500ML 500 ML 50 MG IV CONT (13:41)
[2022-04-11 15:27] LABS: Glucose Point of Care 89 mg/dl (65-105)
--- NOTE | 2022-04-11 16:07 | P.PCNOB_ITS ---
OB - Delivery Note Procedure Delivery date: 04/11/22 Procedure: vaginal delivery Events: Gestational Diabetes and Preeclampsia w severe features Induction method: AROM and Per Pitocin Protocol Delivery monitor: External FHT and External Uterine Route of delivery: Laceration Description: Superficial (vaginal) Delivery repair: other (vaginal packing ,2 sponges) Specimen: Yes Quantitative Blood Loss (ml): 125 Anesthesia type: None Disposition: Floor [place] Baby Date of : 04/11/22 Time of : 15:51 Weeks of gestation at delivery: 36 Infant gender: Male Weight (pounds): 5 Weight (ounces): 11 presentation: vertex position: Left Occiput Anterior Placenta delivery description: Spontaneous Cord Vessel Description: 3 Vessels, Clamped/Cut and Delayed Cord Clamping score one minute: 8 score five minutes: 9 Narrative: mother and baby skin to skin in stable condition
[2022-04-11 17:06] LABS: Rapid Plasma Reagin Non-Reactive (NonReactive)
[2022-04-11] MEDS: WITCH HAZEL 40 PADS 1 PAD TOPICAL (17:46)
[2022-04-11] MEDS: BENZOCAINE 20% AER SPR (*SP) 56 GM CAN 1 SPRAY TOPICAL (17:46)
[2022-04-11] MEDS: IBUPROFEN 600 MG TABLET PO (17:47)
--- NOTE | 2022-04-11 18:18 | OBPPTRN ---
Patient transferred to post room #291 via (wheelchair). Support person present. Oriented to unit, room, information board, rooming in, admission packet and security measures. Patient verbalizes understanding.
[2022-04-11] MEDS: ACETAMINOPHEN 325 MG TABLET 650 MG PO (23:05)
[2022-04-12] MEDS: LACTATED RINGERS 1,000 ML 75 ML (02:50)
[2022-04-12] MEDS: IBUPROFEN 600 MG TABLET PO ×3 (04:18→16:48)
[2022-04-12 04:36] VITALS: BP 139/95; PULSE 98; RESP 18; TEMP 36.6; O2SAT 98
[2022-04-12 04:40] LABS: Basophils Percent Auto 0.3 % (0.2-1.2); Eosinophils Absolute Auto 0.1 K/mm3 (0-0.3); Eosinophils Percent Auto 0.7 % (0-4.4); Hematocrit 32.6 % (37.0-47.0); Hemoglobin 10.5 g/dL (12.0-15.0); Immature Granulocyte Absolute 0.06 K/mm3 (0.00-0.031); Immature Granulocyte Percent A 0.6 % (0-0.5); Lymphocytes Absolute Auto 1.44 K/mm3 (0.9-3.2); Lymphocytes Percent Auto 13.6 % (18.3-44.2); Mean Corpuscular HGB Conc 32.2 g/dl (32-36); Mean Corpuscular Hemoglobin 28.2 pg (26-34); Mean Corpuscular Volume 87.4 fl (80-100); Mean Platelet Volume 9.7 fl (7.4-10.4); Monocytes Absolute Auto 0.9 K/mm3 (0.1-0.6); Monocytes Percent Auto 8.4 % (2.6-8.5); Neutrophils Absolute Auto 8.1 K/mm3 (1.3-6.7); Neutrophils Percent Auto 76.4 % (45.5-73.1); Platelet Count Result 293 k/mm3 (150-375); Red Blood Count 3.73 M/mm3 (4.2-5.4); White Blood Count 10.6 K/mm3 (4.5-10.0)
[2022-04-12 05:03] LABS: Alanine Aminotransferase 61 U/L (6-35); Albumin Level 3.7 g/dL (3.5-5.1); Alkaline Phosphatase 130 U/L (38-126); Anion Gap 9 mmol/L (8-16); Aspartate Amino Transferase 44 U/L (14-36); Bilirubin,Total 0.6 mg/dL (0.2-1.3); Blood Urea Nitrogen 3 mg/dL (7-17); Calcium 6.1 mg/dL (8.4-10.2); Carbon Dioxide 20 mmol/L (22-30); Chloride 106 mmol/L (98-107); Estimated CRCL calculation 143 ml/min; Estimated Glomerular Filt Rate > 60; Glucose 97 mg/dL (65-110); Potassium 2.6 mmol/L (3.4-5.0); Sodium 135 mmol/L (137-145)
[2022-04-12] MEDS: ACETAMINOPHEN 325 MG TABLET 650 MG PO ×2 (08:10→16:47)
[2022-04-12 09:05] VITALS: BP 137/92; PULSE 108; RESP 16; TEMP 36.7; O2SAT 100
[2022-04-12] MEDS: POTASSIUM CHLORIDE INJ 40 MEQ in SODIUM CHLORIDE 0.9% IV 500 ML 130 MEQ IVPB (09:07)
[2022-04-12] MEDS: MULTIVIT/MIN/PREN/FOL AC/IRON TABLET 1 TAB PO (09:52)
[2022-04-12] MEDS: DOCUSATE SODIUM 100 MG CAPSULE PO ×2 (09:52→16:47)
[2022-04-12] MEDS: MAGNESIUM SULF 20GM/WATER500ML 500 ML 50 MG IV CONT (09:52)
[2022-04-12 11:24] VITALS: BP 137/92; PULSE 108; RESP 16; TEMP 36.7; O2SAT 100
[2022-04-12 13:10] VITALS: BP 135/97; PULSE 111; RESP 18; TEMP 36.6
[2022-04-12] MEDS: SODIUM CHLORIDE 0.9% IV 100 ML 75 ML (14:00)
[2022-04-12 16:45] VITALS: BP 137/93; PULSE 104; RESP 16; TEMP 36.6
[2022-04-12 18:50] VITALS: BP 138/90; PULSE 108; RESP 16; TEMP 36.9; O2SAT 99
[2022-04-13 06:33] LABS: Alanine Aminotransferase 51 U/L (6-35); Albumin Level 3.6 g/dL (3.5-5.1); Alkaline Phosphatase 99 U/L (38-126); Anion Gap 12 mmol/L (8-16); Aspartate Amino Transferase 37 U/L (14-36); Bilirubin,Total 0.7 mg/dL (0.2-1.3); Blood Urea Nitrogen 5 mg/dL (7-17); Calcium 8.2 mg/dL (8.4-10.2); Carbon Dioxide 20 mmol/L (22-30); Chloride 106 mmol/L (98-107); Estimated CRCL calculation 104 ml/min; Estimated Glomerular Filt Rate > 60; Glucose 76 mg/dL (65-110); Potassium 3.7 mmol/L (3.4-5.0); Sodium 138 mmol/L (137-145)
[2022-04-13 06:50] VITALS: BP 127/88; PULSE 109; RESP 18; TEMP 36.7; O2SAT 99
[2022-04-13] MEDS: ACETAMINOPHEN 325 MG TABLET 650 MG PO (06:58)
[2022-04-13] MEDS: DOCUSATE SODIUM 100 MG CAPSULE PO (06:59)
[2022-04-13] MEDS: MULTIVIT/MIN/PREN/FOL AC/IRON TABLET 1 TAB PO (06:59)
[2022-04-13] MEDS: IBUPROFEN 600 MG TABLET PO (06:59)
--- NOTE | 2022-04-13 10:20 | PM.OBPNVD ---
OB - PN: Subj Subjective Date/time seen: 04/13/22 10:20 Patient comments: no complaints, pain well controlled and tolerating diet OB - PN: Obj Data Labs CBC & Chem 7: 04/12/22 04:11 04/13/22 05:20 Labs: Laboratory Results - last 24 hr 04/13/22 05:20 Sodium 138 Potassium 3.7 Chloride 106 Carbon Dioxide 20 L Anion Gap 12 BUN 5 L Creatinine 0.50 L Estim Creat Clear Calc 104 Estimated GFR > 60 Glucose 76 Calcium 8.2 L Total Bilirubin 0.7 AST 37 H ALT 51 H Alkaline Phosphatase 99 Total Protein 7.0 Albumin 3.6 OB - PN A/P Plan day: 2 Plan: routine care and discharge home Time Spent With Patient Time: Total time spent is greater than 50% in coordination of care (as documented) at patient's floor/unit and/or counseling patient: Exam Const: General: comfortable and no acute distress Resp: Effort & Inspection: normal respiratory effort Auscultation: no rales, no rhonchi and no wheezes Cardio: Rate: regular rate Heart sounds: no click, no murmurs and no rubs GI: GI Palp: Yes Soft to palpation and No Tenderness to palpation present (GI) Auscultation: normal bowel sounds Extrem: General: normal to inspection, no pedal edema and no calf tenderness
--- NOTE | 2022-04-13 10:23 | PM.OBDSVD ---
DS: Admitting Diagnosis Discharge Date 04/13/22 Admitting Diagnosis term , preeclamsia OB - DS: Summary OB Procedures : None OB Procedures Intrapartum: Spontaneous Vag Delivery OB Procedures: : None Time Spent with Patient Time attestation: Total time spent providing and/or coordinating discharge services: DS: Data Data Completed and Pending Pending studies at discharge: Pending at discharge 04/11/22 17:29 Surgical [PTH] Routine Labs on day of discharge: Labs from last 24 hours 04/13/22 05:20 Sodium 138 Potassium 3.7 Chloride 106 Carbon Dioxide 20 L Anion Gap 12 BUN 5 L Creatinine 0.50 L Estim Creat Clear Calc 104 Estimated GFR > 60 Glucose 76 Calcium 8.2 L Total Bilirubin 0.7 AST 37 H ALT 51 H Alkaline Phosphatase 99 Total Protein 7.0 Albumin 3.6 Discharge Plan Discharge Discharging Clinician: Moisés Wallace Patient Disposition: Home, Self-Care Activity: pelvic rest Diet: regular Patient Instructions: Antibiotic Form Stand Alone Forms: General Discharge Information Follow-up/Referrals: Moisés Wallace MD [Physician] - Discharge Medications: Continued acetaminophen 500 mg Tablet 1,000 mg PO Q6H PRN (Reason: Pain or headache) 0RF Discontinued pantoprazole 20 mg tablet,delayed release (DR/EC) 20 mg PO BID granisetron HCl [Kytril] 1 mg Tablet 1 mg PO Q12H Humulin N NPH U-100 Insulin 100 unit/mL Suspension 7 unit SUBCUT BID prednisolone 15 mg/5 mL Solution 15 mg PO BID Date of admission: 04/11/22 11:55 Primary Care Provider: Drake,Pako Admitting Provider: Moisés Wallace Attending physician on admission: Moisés Wallace Condition: Stable
--- NOTE | 2022-04-13 14:01 | PC.NURSE ---
Please see maternal discharge packet for all teaching topics.
[2022-04-14 10:41] VITALS: BP 139/82; PULSE 90; RESP 20; TEMP 37.3; O2SAT 99
== END 2022-04-13 13:31 | disposition home or self-care (01) | DRG 807 ==
LOC: ANHLDR 12:08 → ANHOB2 18:55
PROVIDERS: Advanced Practice Midwife; Admitting Provider Obstetrics & Gynecology; PCP Student in an Organized Health Care Education/Training Program; Visit Provider Obstetrics & Gynecology
DX: O14.14 Severe pre-eclampsia complicating childbirth (principal); Z37.0 Single live birth; O24.429 Gestational diabetes mellitus in childbirth, unspecified control; O62.3 Precipitate labor; Z3A.36 36 weeks gestation of pregnancy; O43.123 Velamentous insertion of umbilical cord, third trimester
CPT/HCPCS: 36415; 80053; 82948; 85025; 86592; 86850; 86900; 86901; 88307; A9270; J2590; J3475; J3480; J7040; J7120

== ENCOUNTER 2022-11-20 18:38 | Emergency (ER) | payer BC, MEDICAID, SELFPAY ==
[2022-11-20 18:41] VITALS: BP 138/92; PULSE 89; RESP 16; TEMP 36.6; O2SAT 100
[2022-11-20] MEDS: TETRACAINE HCL 0.5% OPHTH SOLN 4 ML BTL 2 DROP LEFT EYE (20:07)
--- NOTE | 2022-11-20 20:08 | ED.EYEPROB ---
HPI - Eye Problem General Chief complaint: Eye Problems Stated complaint: pillow cleaner in right eye Time Seen by Provider: 11/20/22 19:51 Source: patient Mode of arrival: ambulatory Limitations: no limitations History of Present Illness HPI Narrative: 32 years old white female presents with left eye irritation prior to arrival to the emergency room. Patient was trying to unclog her sink using certain chemicals like Drano, went under the sink and somehow the pipe got apart and the splash water and chemical on the left side of the face and eye patient was able to irrigate her eye up to 15 minutes by shower. Currently she feels much better, slight feeling of something inside her eye. No blurry vision. Related Data Allergies Allergy/AdvReac Type Severity Reaction Status Date / Time adhesive Allergy Itching Verified 04/04/22 13:37 nortriptyline Allergy Rash Verified 04/04/22 13:37 topiramate [From Topamax] Allergy Hives Verified 04/04/22 13:37 diphenhydramine AdvReac Intermediate Nervousness Verified 11/12/21 13:01 loratadine AdvReac Unknown NERVOUSNESS Verified 11/12/21 13:01 tramadol AdvReac Vomiting Verified 02/25/22 19:15 Grass Allergy Intermediate Dyspnea / Uncoded 11/12/21 13:01 SOB Review of Systems Review of Systems: All systems reviewed & are unremarkable except as noted in HPI and below PMFSH Family History Family History Mother Hypertension Father Skin cancer Sibling Skin cancer Grandparent Cerebrovascular accident Grandparent Cancer Social History Social History Smoking status: Never smoker Substance use: never Lack of Transportation: No Lack of Food: Never True Current Housing: I Have Housing Concerned About Future Housing: No Difficulty Paying Gas/Electric Bills: No Difficulty Paying for Meds: No Currently Unemployed: No Education: High School Diploma/GED Difficulty w/ Childcare or Family Care: No Spiritual care concerns: No Exam Narrative: General appearance: Well-developed, well-nourished Skin: Normal color slight erythematous changes of the left face Head: Normocephalic, nontraumatic Eyes: Clear conjunctiva, left eye exam showed no acute abnormalities. Neurologic: Alert and oriented ?3, STAFF INTERPRETER is normal as tested, no gross motor deficit Course Reevaluation(s) Reevaluation #1: Feeling much better after the irrigation Date: 11/20/22 Time: 20:23 Vital Signs Vital signs: Vital Signs Temperature 36.6 C 11/20/22 18:41 Pulse Rate 89 11/20/22 18:41 Respiratory Rate 16 11/20/22 18:41 Blood Pressure 138/92 H 11/20/22 18:41 Pulse Oximetry 100 11/20/22 18:41 Oxygen Delivery Room Air 11/20/22 18:41 Temperature 36.6 C 11/20/22 18:41 Pulse Rate 89 11/20/22 18:41 Respiratory Rate 16 11/20/22 18:41 Blood Pressure 138/92 H 11/20/22 18:41 Pulse Oximetry 100 11/20/22 18:41 Oxygen Delivery Room Air 11/20/22 18:41 MDM - Eye Problem MDM Narrative Medical decision making narrative: Patient presents with chemical exposure, 500 cc normal saline irrigation, [place] lens, feeling much better, the pt was discharged to home.the pt,s condition upon discharge was fair,education was provided to the pt in reference to the final impression,discharge ,treatment,prognosis and need for follow up . Differential Diagnosis Differential diagnosis: Likely other (Chemical conjunctivitis) Critical Care Time Critical Care Time Critical Care Time: Yes Total Critical Care Time: 10 Discharge Plan Discharge Clinical Impression: Acute chemic
--- NOTE | 2022-11-20 20:41 | PC.NURSE ---
500mL of NS used to irrigate patient's left eye. Patient tolerated it well.
== END 2022-11-20 20:58 | disposition home or self-care (01) ==
PROVIDERS: Emergency Provider Emergency Medicine; PCP Student in an Organized Health Care Education/Training Program
DX: T54.3X1A Toxic effect of corrosive alkalis and alkali-like substances, accidental (unintentional), initial encounter (principal); H10.212 Acute toxic conjunctivitis, left eye
CPT/HCPCS: 99283; J7030; J7040

== ENCOUNTER 2023-02-07 15:28 | Emergency (ER) | payer BC, MEDICAID, SELFPAY ==
[2023-02-07 15:29] VITALS: BP 159/90; PULSE 111; RESP 18; TEMP 36.7; O2SAT 100
[2023-02-07 15:45] VITALS: BP 154/96; PULSE 99; RESP 18; O2SAT 100
--- NOTE | 2023-02-07 16:35 | ED.HA ---
HPI - Headache General Chief Complaint: Headache Stated Complaint: migraine Time Seen by Provider: 02/07/23 15:47 History of Present Illness HPI Narrative: 32-year-old female with a history of preeclampsia, hyperemesis gravidarum, migraines reports for evaluation for a headache for the past 3 to 4 days. Patient states this headache is like her typical migraines. States it starts in her occiput and is at times bitemporal. She is currently breast-feeding her [id number] child and has tried taking Tylenol and aspirin without relief. Her last dose of Tylenol was at 0730 this morning. Patient denies recent head trauma, fever, nuchal rigidity, vision changes, focal numbness or weakness, fever, vomiting. She does report associated nausea and photophobia. Related Data Allergies Allergy/AdvReac Type Severity Reaction Status Date / Time adhesive Allergy Itching Verified 04/04/22 13:37 nortriptyline Allergy Rash Verified 04/04/22 13:37 prochlorperazine Allergy Anxiety Verified 02/07/23 16:39 [From Compazine] topiramate [From Topamax] Allergy Hives Verified 04/04/22 13:37 diphenhydramine AdvReac Intermediate Nervousness Verified 11/12/21 13:01 loratadine AdvReac Unknown NERVOUSNESS Verified 11/12/21 13:01 tramadol AdvReac Vomiting Verified 02/25/22 19:15 Grass Allergy Intermediate Dyspnea / Uncoded 11/12/21 13:01 SOB Review of Systems Review of Systems: CONSTITUTIONAL: Denies fever, chills EYES: Denies visual changes, redness, or discharge. ENT: Denies rhinorrhea, congestion, sore throat, or otalgia. CARDIOVASCULAR: Denies chest pain, palpitations, or edema. RESPIRATORY: Denies cough or dyspnea. GASTROINTESTINAL: Denies abdominal pain, nausea, vomiting, or diarrhea. GENITOURINARY: Denies dysuria or hematuria. SKIN: Denies rash or itching. MUSCULOSKELETAL: Denies back pain, joint pain, or myalgia. NEUROLOGIC: See HPI PSYCHIATRIC: Denies anxiety or depression. [facility] Family History Family History Mother Hypertension Father Skin cancer Sibling Skin cancer Grandparent Cerebrovascular accident Grandparent Cancer Social History Social History Smoking status: Never smoker Substance use: never Lack of Transportation: No Lack of Food: Never True Current Housing: I Have Housing Concerned About Future Housing: No Difficulty Paying Gas/Electric Bills: No Difficulty Paying for Meds: No Currently Unemployed: No Education: High School Diploma/GED Difficulty w/ Childcare or Family Care: No Spiritual care concerns: No Exam Narrative: GENERAL: Well-appearing, in no acute distress. Patient resting comfortably in exam bed. She is pleasant and conversational. HEAD: Normocephalic, atraumatic EYES: PERRLA, EOMI ENT: Nares clear. Mucous membranes moist. Oropharynx without tonsillar hypertrophy exudate or other lesions. Bilateral TMs are garcia nonbulging. No effusions NECK: Supple. No nuchal rigidity CHEST: No respiratory distress. Clear to auscultation, no adventitious breath sounds. HEART: Regular rate and rhythm. No murmur heard. Normal peripheral pulses. ABDOMEN: Soft, nontender, normal active bowel sounds. EXTREMITIES: Normal range of motion. No edema. SKIN: Warm, dry, no rash. NEURO: No focal deficits. Alert and oriented x3. Cranial nerves II through XII intact. Strength 5/5 in BUE and BLE. Sensation intact throughout. No pronator drift. Normal nlmtyd-po-dics. PSYCH: Normal mood and affect. Course Vital Signs Vital signs: Vital Signs Temperature 98.1 F 02/07/23 15:29 Pulse Rate 111 H 02/07/23 15:29 Respiratory Rate 18 02/07/23 15:29 Blood Pressure 159/90 H 02/07/23 15:29 Pulse Oximetry 100 02/07/23 15:29 Oxygen Delivery Room Air 02/07/23 15:29 Temperature 98.1 F 02/07/23 15:29 Pulse Rate 76 02/07/23 17:36 Respiratory Rate 18
[2023-02-07] MEDS: SODIUM CHLORIDE 0.9% IV 1,000 ML 999 ML IV CONT (16:36)
[2023-02-07] MEDS: ACETAMINOPHEN 500 MG TABLET 1000 MG PO (16:36)
[2023-02-07 17:36] VITALS: BP 141/95; PULSE 76; RESP 18; O2SAT 100
== END 2023-02-07 17:37 | disposition home or self-care (01) ==
PROVIDERS: Emergency Provider Physician Assistant; PCP Student in an Organized Health Care Education/Training Program
DX: R51.9 Headache, unspecified (principal)
CPT/HCPCS: 96360; 99283; A9270; J7030

== ENCOUNTER 2024-03-07 18:09 | Emergency (ER) | payer BC, SELFPAY ==
[2024-03-07 18:13] VITALS: BP 153/90; PULSE 117; RESP 18; TEMP 36.9; O2SAT 100
--- NOTE | 2024-03-07 19:57 | PC.NURSE ---
Pt ambulated to triage desk with steady gait stating that she was leaving due to wait times and would reach out to pcp in the morning.
== END 2024-03-07 20:17 | disposition left against medical advice (07) ==
LOC: ANHED 20:07
PROVIDERS: PCP Student in an Organized Health Care Education/Training Program
DX: M54.50 Low back pain, unspecified (principal)
CPT/HCPCS: 99199